=== PATIENT | male | born 1980 ===

== ENCOUNTER 2018-07-12 09:32 | Inpatient (IN) | payer MEDICAID, OTHER, SELFPAY ==
[~2018-07-12] VITALS: Ht 175.3 cm; Wt 83.6 kg
[2018-07-12 11:17] VITALS: BP 146/93
[2018-07-12 12:32] VITALS: BP 143/95
[2018-07-12] MEDS: INSULIN LISPRO 100 UNITS/ML, PEN SQ-INSULIN SCH ×3 (13:00→20:45)
[2018-07-12] MEDS ORDERED: ONDANSETRON 2MG/ML, 2ML IVPush PRN (13:00)
[2018-07-12] MEDS ORDERED: ENALAPRILAT 1.25 MG/ML, 2ML IVPush PRN (13:00)
[2018-07-12] MEDS ORDERED: LABETALOL 5MG/ML, 20ML IVPush PRN (13:00)
[2018-07-12] MEDS ORDERED: LISI-170 PO (13:28)
[2018-07-12] MEDS ORDERED: METF10007 PO (13:28)
[2018-07-12] MEDS ORDERED: PLEASE ENTER ALLERGIES MC SCH (13:30)
[2018-07-12 13:56] LABS: BASOPHILS # (AUTO) 0.04 x10^3/uL (0-0.1); BASOPHILS % (AUTO) 0 % (0-1); EOSINOPHILS % (AUTO) 3 % (1-7); LYMPHOCYTES # (AUTO) 1.56 x10^3/uL (1-3.4); LYMPHOCYTES % (AUTO) 13 % (22-44); MD NO; MEAN CORPUSCULAR HEMOGLOBIN 27.9 pg (27.5-34.5); MEAN CORPUSCULAR HGB CONC 33.5 g/dL (33.2-36.2); MEAN CORPUSCULAR VOLUME 83.3 fL (81-97); MONOCYTES % (AUTO) 5 % (2-9); NEUTROPHILS # (AUTO) 9.29 x10^3/uL (1.8-6.8); NEUTROPHILS % (AUTO) 78 % (42-75); PLATELET COUNT 347 x10^3/uL (130-400); RED BLOOD COUNT 4.39 x10^6/uL (4.38-5.82); RED CELL DISTRIBUTION WIDTH 14.5 % (9.4-14.8)
[2018-07-12 14:00] LABS: ANION GAP 3 mmol/L (5-15); CALCIUM 8.7 mg/dL (8.5-10.1); CHLORIDE 106 mmol/L (98-107)
[2018-07-12] MEDS ORDERED: SODIUM CHLORIDE 0.9% 1,000ML IVBOLUS ONE (14:00)
[2018-07-12 14:14] LABS: THYROID STIMULATING HORMONE 0.505 mIU/L (0.358-3.740)
[2018-07-12 14:26] LABS: HCT (SEDRATE) 36.5 % (39.2-51.8)
[2018-07-12] MEDS: NS + 20MEQ KCL 1,000 ML IV SCH (15:20)
[2018-07-12] MEDS ORDERED: VANCOMYCIN PER PHARMACY MC PRN (15:30)
[2018-07-12 15:48] VITALS: BP 149/97
[2018-07-12] MEDS ORDERED: PHARMACOKINETIC CONSULTATION MC ONE (16:00)
[2018-07-12] MEDS ORDERED: PHARMACOKINETIC MONITORING MC PRN (16:00)
[2018-07-12] MEDS: HEPARIN 5,000 UNITS/ML, 1ML SQ SCH ×2 (16:10→23:48)
[2018-07-12] MEDS: VANCOMYCIN 1,500 MG in SODIUM CHLORIDE 0.9% 250 ML IV SCH (16:43)
[2018-07-12] MEDS: metFORMIN 500 MG TABLET PO SCH (17:16)
[2018-07-12 20:07] LABS: HEMOGLOBIN A1C 8.4 % (4.2-6.3)
[2018-07-12] MEDS: PIPERACILLIN/TAZO/PMX 3.375GM 50 ML IV SCH (20:18)
[2018-07-12 20:50] VITALS: BP 157/90
[2018-07-13] MEDS: PIPERACILLIN/TAZO/PMX 3.375GM 50 ML IV SCH ×4 (01:31→21:30)
[2018-07-13 02:32] VITALS: BP 145/92
[2018-07-13] MEDS: NS + 20MEQ KCL 1,000 ML IV SCH (03:23)
[2018-07-13] MEDS: VANCOMYCIN 1,500 MG in SODIUM CHLORIDE 0.9% 250 ML IV SCH ×2 (04:33→16:48)
[2018-07-13 05:33] LABS: BASOPHILS # (AUTO) 0.05 x10^3/uL (0-0.1); BASOPHILS % (AUTO) 0 % (0-1); EOSINOPHILS # (AUTO) 0.48 x10^3/uL (0-0.4); EOSINOPHILS % (AUTO) 4 % (1-7); LYMPHOCYTES # (AUTO) 2.23 x10^3/uL (1-3.4); LYMPHOCYTES % (AUTO) 19 % (22-44); MD NO; MEAN CORPUSCULAR HEMOGLOBIN 28.3 pg (27.5-34.5); MEAN CORPUSCULAR HGB CONC 34.3 g/dL (33.2-36.2); MEAN CORPUSCULAR VOLUME 82.4 fL (81-97); MEAN PLATELET VOLUME 7.9 fL (7.4-10.4); MONOCYTES # (AUTO) 0.75 x10^3/uL (0.2-0.8); MONOCYTES % (AUTO) 6 % (2-9); NEUTROPHILS # (AUTO) 8.47 x10^3/uL (1.8-6.8); NEUTROPHILS % (AUTO) 71 % (42-75); PLATELET COUNT 339 x10^3/uL (130-400); RED BLOOD COUNT 4.13 x10^6/uL (4.38-5.82); RED CELL DISTRIBUTION WIDTH 14.3 % (9.4-14.8)
[2018-07-13 06:01] LABS: ANION GAP 2 mmol/L (5-15); CALCIUM 8.6 mg/dL (8.5-10.1); CHLORIDE 108 mmol/L (98-107); CREATININE 0.79 mg/dL (0.7-1.3)
[2018-07-13 06:02] LABS: CHOLESTEROL, TOTAL 143 mg/dL (140-239); TRIGLYCERIDES 84 mg/dL (50-200); VLDL CHOLESTEROL 17 mg/dL (0-25)
[2018-07-13 06:03] LABS: CHOL/HDL RATIO 5.7; HDL CHOL % 17 % (26-37); HDL CHOLESTEROL (DIRECT) 25 mg/dL (40-60); LDL CHOLESTEROL,CALCULATED 101 mg/dL (54-169)
[2018-07-13 07:11] VITALS: BP 142/89
[2018-07-13] MEDS: INSULIN LISPRO 100 UNITS/ML, PEN SQ-INSULIN SCH ×4 (08:28→21:00)
[2018-07-13] MEDS: LISINOPRIL 20 MG TABLET PO SCH (08:29)
[2018-07-13] MEDS: metFORMIN 500 MG TABLET PO SCH ×2 (08:29→16:48)
[2018-07-13] MEDS: HEPARIN 5,000 UNITS/ML, 1ML SQ SCH ×3 (08:29→23:57)
[2018-07-13] MEDS ORDERED: GADOBUTROL 7.5 MMOL/7.5 ML PFS ONE (10:34)
[2018-07-13 13:36] VITALS: BP 146/82
[2018-07-13 21:30] VITALS: BP 142/84
[2018-07-14 01:39] VITALS: BP 143/91
[2018-07-14] MEDS: PIPERACILLIN/TAZO/PMX 3.375GM 50 ML IV SCH ×4 (03:10→19:58)
[2018-07-14] MEDS: VANCOMYCIN 1,500 MG in SODIUM CHLORIDE 0.9% 250 ML IV SCH ×2 (04:40→17:31)
[2018-07-14 07:31] VITALS: BP 129/78
[2018-07-14] MEDS: ACETAMINOPHEN 325 MG TABLET PO PRN ×2 (07:45→13:30)
[2018-07-14] MEDS: LISINOPRIL 20 MG TABLET PO SCH (07:46)
[2018-07-14] MEDS: INSULIN LISPRO 100 UNITS/ML, PEN SQ-INSULIN SCH ×4 (07:46→20:43)
[2018-07-14] MEDS: metFORMIN 500 MG TABLET PO SCH ×2 (07:46→16:28)
[2018-07-14] MEDS: HEPARIN 5,000 UNITS/ML, 1ML SQ SCH ×2 (07:46→16:28)
[2018-07-14 08:52] LABS: BASOPHILS # (AUTO) 0.04 x10^3/uL (0-0.1); BASOPHILS % (AUTO) 1 % (0-1); EOSINOPHILS # (AUTO) 0.52 x10^3/uL (0-0.4); EOSINOPHILS % (AUTO) 7 % (1-7); LYMPHOCYTES # (AUTO) 1.78 x10^3/uL (1-3.4); LYMPHOCYTES % (AUTO) 23 % (22-44); MD NO; MEAN CORPUSCULAR HGB CONC 34.2 g/dL (33.2-36.2); MEAN PLATELET VOLUME 7.7 fL (7.4-10.4); MONOCYTES # (AUTO) 0.37 x10^3/uL (0.2-0.8); MONOCYTES % (AUTO) 5 % (2-9); NEUTROPHILS # (AUTO) 5.08 x10^3/uL (1.8-6.8); NEUTROPHILS % (AUTO) 65 % (42-75); PLATELET COUNT 433 x10^3/uL (130-400); RED BLOOD COUNT 4.51 x10^6/uL (4.38-5.82); RED CELL DISTRIBUTION WIDTH 13.9 % (9.4-14.8)
[2018-07-14 09:13] LABS: ANION GAP 9 mmol/L (5-15); CALCIUM 8.6 mg/dL (8.5-10.1); CHLORIDE 103 mmol/L (98-107)
[2018-07-14 09:14] LABS: CREATININE 0.81 mg/dL (0.7-1.3)
[2018-07-14 13:27] VITALS: BP 121/81
[2018-07-14] MEDS: DAKIN'S SOLUTION 1/4 STRENGTH 1,000 ML IRRIG SOLN EXT SCH (15:47)
[2018-07-14 20:00] VITALS: BP 142/91
[2018-07-15 00:59] VITALS: BP 113/75
[2018-07-15] MEDS: PIPERACILLIN/TAZO/PMX 3.375GM 50 ML IV SCH ×3 (03:45→15:17)
[2018-07-15] MEDS: VANCOMYCIN 1,500 MG in SODIUM CHLORIDE 0.9% 250 ML IV SCH (05:04)
[2018-07-15 08:04] VITALS: BP 156/97
[2018-07-15] MEDS: metFORMIN 500 MG TABLET PO SCH ×2 (08:20→17:54)
[2018-07-15] MEDS: INSULIN LISPRO 100 UNITS/ML, PEN SQ-INSULIN SCH ×4 (08:20→20:18)
[2018-07-15] MEDS: HEPARIN 5,000 UNITS/ML, 1ML SQ SCH ×4 (08:21→23:45)
[2018-07-15] MEDS: LISINOPRIL 20 MG TABLET PO SCH (08:21)
[2018-07-15 14:26] VITALS: BP 142/92
[2018-07-15] MEDS: DAKIN'S SOLUTION 1/4 STRENGTH 1,000 ML IRRIG SOLN EXT SCH ×2 (15:17→23:45)
[2018-07-15] MEDS: DAPTOMYCIN 500 MG in SODIUM CHLORIDE 0.9% 100 ML IV SCH (17:53)
[2018-07-15] MEDS: INSULIN GLARGINE 100 UNITS/ML, PEN SQ-INSULIN SCH (18:39)
[2018-07-15 21:30] VITALS: BP 136/91
[2018-07-16 03:50] VITALS: BP 165/95
[2018-07-16 06:58] VITALS: BP 160/89
[2018-07-16] MEDS: INSULIN LISPRO 100 UNITS/ML, PEN SQ-INSULIN SCH ×4 (07:00→21:23)
[2018-07-16] MEDS: INSULIN GLARGINE 100 UNITS/ML, PEN SQ-INSULIN SCH (08:23)
[2018-07-16] MEDS: HEPARIN 5,000 UNITS/ML, 1ML SQ SCH ×2 (08:24→17:33)
[2018-07-16] MEDS: LISINOPRIL 20 MG TABLET PO SCH (08:24)
[2018-07-16] MEDS: metFORMIN 500 MG TABLET PO SCH ×2 (08:24→17:32)
[2018-07-16] MEDS: DAKIN'S SOLUTION 1/4 STRENGTH 1,000 ML IRRIG SOLN EXT SCH ×2 (08:25→21:27)
[2018-07-16 14:01] VITALS: BP 164/73
[2018-07-16] MEDS: DAPTOMYCIN 500 MG in SODIUM CHLORIDE 0.9% 100 ML IV SCH (18:46)
[2018-07-16 19:44] VITALS: BP 143/96
[2018-07-17 01:16] VITALS: BP 125/79
[2018-07-17] MEDS: HEPARIN 5,000 UNITS/ML, 1ML SQ SCH ×3 (01:16→17:32)
[2018-07-17] MEDS: INSULIN LISPRO 100 UNITS/ML, PEN SQ-INSULIN SCH ×4 (07:00→20:55)
[2018-07-17 07:53] VITALS: BP 143/98
[2018-07-17] MEDS: INSULIN GLARGINE 100 UNITS/ML, PEN SQ-INSULIN SCH (08:13)
[2018-07-17] MEDS: metFORMIN 500 MG TABLET PO SCH ×2 (08:14→17:32)
[2018-07-17] MEDS: LISINOPRIL 20 MG TABLET PO SCH (08:14)
[2018-07-17 13:53] VITALS: BP 115/81
[2018-07-17] MEDS: DAKIN'S SOLUTION 1/4 STRENGTH 1,000 ML IRRIG SOLN EXT SCH (17:37)
[2018-07-17] MEDS: DAPTOMYCIN 500 MG in SODIUM CHLORIDE 0.9% 100 ML IV SCH (17:46)
[2018-07-17] MEDS ORDERED: LORazepam 2 MG/ML, 1ML IM ONE (18:30)
[2018-07-17] MEDS ORDERED: DIPHENHYDRAMINE 50 MG/ML, 1ML IM ONE (18:30)
[2018-07-17 20:00] VITALS: BP 127/84
[2018-07-18] MEDS: HEPARIN 5,000 UNITS/ML, 1ML SQ SCH ×3 (00:53→18:33)
[2018-07-18 02:22] VITALS: BP 123/83
[2018-07-18] MEDS: INSULIN LISPRO 100 UNITS/ML, PEN SQ-INSULIN SCH ×4 (07:00→21:00)
[2018-07-18 07:09] VITALS: BP 143/92
[2018-07-18] MEDS: DAKIN'S SOLUTION 1/4 STRENGTH 1,000 ML IRRIG SOLN EXT SCH (09:00)
[2018-07-18] MEDS: INSULIN GLARGINE 100 UNITS/ML, PEN SQ-INSULIN SCH (10:08)
[2018-07-18] MEDS: metFORMIN 500 MG TABLET PO SCH ×2 (10:09→16:47)
[2018-07-18] MEDS: LISINOPRIL 20 MG TABLET PO SCH (10:10)
[2018-07-18 10:37] LABS: HCT (SEDRATE) 38.7 % (39.2-51.8)
[2018-07-18 10:40] LABS: MEAN CORPUSCULAR HEMOGLOBIN 28.6 pg (27.5-34.5); MEAN CORPUSCULAR VOLUME 82.9 fL (81-97); RED BLOOD COUNT 4.65 x10^6/uL (4.38-5.82)
[2018-07-18 10:41] LABS: BASOPHILS # (AUTO) 0.04 x10^3/uL (0-0.1); BASOPHILS % (AUTO) 1 % (0-1); EOSINOPHILS # (AUTO) 0.57 x10^3/uL (0-0.4); EOSINOPHILS % (AUTO) 7 % (1-7); LYMPHOCYTES % (AUTO) 22 % (22-44); MD NO; MEAN CORPUSCULAR HGB CONC 34.5 g/dL (33.2-36.2); MEAN PLATELET VOLUME 7.7 fL (7.4-10.4); MONOCYTES # (AUTO) 0.38 x10^3/uL (0.2-0.8); MONOCYTES % (AUTO) 5 % (2-9); NEUTROPHILS % (AUTO) 66 % (42-75); PLATELET COUNT 608 x10^3/uL (130-400); RED CELL DISTRIBUTION WIDTH 14.8 % (9.4-14.8)
[2018-07-18 10:45] LABS: ANION GAP 8 mmol/L (5-15); CALCIUM 9.2 mg/dL (8.5-10.1); CHLORIDE 106 mmol/L (98-107); CREATININE 0.74 mg/dL (0.7-1.3)
[2018-07-18 12:37] VITALS: BP 120/81
[2018-07-18] MEDS: DAPTOMYCIN 500 MG in SODIUM CHLORIDE 0.9% 100 ML IV SCH (17:29)
[2018-07-18 19:54] VITALS: BP 120/88
[2018-07-19] MEDS: HEPARIN 5,000 UNITS/ML, 1ML SQ SCH ×3 (02:04→17:30)
[2018-07-19 03:40] VITALS: BP 124/87
[2018-07-19] MEDS: INSULIN LISPRO 100 UNITS/ML, PEN SQ-INSULIN SCH ×3 (07:00→16:00)
[2018-07-19 07:33] VITALS: BP 124/83
[2018-07-19] MEDS: INSULIN GLARGINE 100 UNITS/ML, PEN SQ-INSULIN SCH (07:44)
[2018-07-19] MEDS: metFORMIN 500 MG TABLET PO SCH ×3 (07:44→17:00)
[2018-07-19] MEDS: LISINOPRIL 20 MG TABLET PO SCH (07:45)
[2018-07-19 08:44] LABS: BASOPHILS # (AUTO) 0.04 x10^3/uL (0-0.1); BASOPHILS % (AUTO) 1 % (0-1); EOSINOPHILS # (AUTO) 0.61 x10^3/uL (0-0.4); EOSINOPHILS % (AUTO) 9 % (1-7); LYMPHOCYTES # (AUTO) 2.04 x10^3/uL (1-3.4); LYMPHOCYTES % (AUTO) 29 % (22-44); MD NO; MEAN CORPUSCULAR HEMOGLOBIN 27.6 pg (27.5-34.5); MEAN CORPUSCULAR HGB CONC 33.6 g/dL (33.2-36.2); MEAN CORPUSCULAR VOLUME 82.2 fL (81-97); MEAN PLATELET VOLUME 8.1 fL (7.4-10.4); MONOCYTES # (AUTO) 0.31 x10^3/uL (0.2-0.8); MONOCYTES % (AUTO) 4 % (2-9); NEUTROPHILS # (AUTO) 3.97 x10^3/uL (1.8-6.8); NEUTROPHILS % (AUTO) 57 % (42-75); PLATELET COUNT 582 x10^3/uL (130-400); RED CELL DISTRIBUTION WIDTH 14.7 % (9.4-14.8)
[2018-07-19] MEDS: DAKIN'S SOLUTION 1/4 STRENGTH 1,000 ML IRRIG SOLN EXT SCH (10:07)
[2018-07-19 14:47] VITALS: BP 133/91
[2018-07-19] MEDS ORDERED: FENTANYL PF 100 MCG/2ML ONE ×2 (14:47→16:52)
[2018-07-19] MEDS ORDERED: BACITRACIN 50,000 UNIT ONE (15:22)
[2018-07-19] MEDS ORDERED: CEFAZOLIN 1,000 MG ONE (16:28)
[2018-07-19] MEDS ORDERED: DEXAMETHASONE 4 MG/ML, 1ML ONE (16:28)
[2018-07-19] MEDS ORDERED: PROPOFOL 10 MG/ML, 20ML ONE (16:28)
[2018-07-19] MEDS ORDERED: ONDANSETRON 2MG/ML, 2ML ONE (16:28)
[2018-07-19] MEDS ORDERED: GLYCOPYRROLATE 0.2MG/1ML, 5ML ONE (16:28)
[2018-07-19] MEDS ORDERED: NEOSTIGMINE 1 MG/ML, 10ML ONE (16:28)
[2018-07-19] MEDS ORDERED: SUCCINYLCHOLINE 20 MG/ML, 10ML ONE (16:28)
[2018-07-19] MEDS ORDERED: ROCURONIUM 10MG/ML,5ML ONE (16:28)
[2018-07-19] MEDS ORDERED: HYDROmorphone 1 MG/ML, 1ML IV PRN (16:30)
[2018-07-19] MEDS ORDERED: DIPHENHYDRAMINE 50 MG/ML, 1ML IVPush PRN (16:30)
[2018-07-19] MEDS ORDERED: hydrALAzine 20 MG/ML, 1ML IV PRN (16:30)
[2018-07-19] MEDS ORDERED: LABETALOL 5MG/ML, 20ML IV PRN (16:30)
[2018-07-19] MEDS ORDERED: PROMETHAZINE 25 MG/ML, 1ML IV PRN (16:30)
[2018-07-19] MEDS ORDERED: OXYcodone 5 MG/5 ML ORAL.SOL UDC ONE (16:52)
[2018-07-19] MEDS: FENTANYL PF 100 MCG/2ML IV PRN ×2 (16:56→17:13)
[2018-07-19] MEDS ORDERED: OXYcodone 5 MG/5 ML ORAL.SOL UDC PO PRN (17:00)
[2018-07-19] MEDS ORDERED: ONDANSETRON ODT 8 MG ONE (17:18)
[2018-07-19] MEDS: ONDANSETRON ODT 4 MG PO PRN ×2 (17:20→21:21)
[2018-07-19] MEDS ORDERED: MORPHINE SULFATE 4 MG/ML, 1ML ONE (18:21)
[2018-07-19] MEDS ORDERED: OXYcodone/APAP 5/325MG TABLET PO PRN (18:30)
[2018-07-19] MEDS ORDERED: MORPHINE SULFATE 4 MG/ML, 1ML IVPush PRN (18:30)
[2018-07-19] MEDS: DAPTOMYCIN 500 MG in SODIUM CHLORIDE 0.9% 100 ML IV SCH (19:09)
[2018-07-19 20:36] VITALS: BP 139/84
[2018-07-20] MEDS: HEPARIN 5,000 UNITS/ML, 1ML SQ SCH ×3 (00:29→17:03)
[2018-07-20] MEDS: INSULIN LISPRO 100 UNITS/ML, PEN SQ-INSULIN SCH ×5 (00:29→20:31)
[2018-07-20 01:15] VITALS: BP 102/69
[2018-07-20 07:00] VITALS: BP 109/70
[2018-07-20] MEDS: LISINOPRIL 20 MG TABLET PO SCH (08:17)
[2018-07-20] MEDS: metFORMIN 500 MG TABLET PO SCH ×2 (08:18→17:04)
[2018-07-20] MEDS: INSULIN GLARGINE 100 UNITS/ML, PEN SQ-INSULIN SCH (08:19)
[2018-07-20] MEDS: DAKIN'S SOLUTION 1/4 STRENGTH 1,000 ML IRRIG SOLN EXT SCH (08:19)
[2018-07-20 12:51] VITALS: BP 116/81
[2018-07-20 20:00] VITALS: BP 138/96
[2018-07-20] MEDS: DAPTOMYCIN 500 MG in SODIUM CHLORIDE 0.9% 100 ML IV SCH (20:06)
[2018-07-21] MEDS: HEPARIN 5,000 UNITS/ML, 1ML SQ SCH ×3 (01:06→17:06)
[2018-07-21 01:08] VITALS: BP 124/82
[2018-07-21] MEDS: metFORMIN 500 MG TABLET PO SCH ×2 (07:45→17:06)
[2018-07-21 08:07] VITALS: BP 122/84
[2018-07-21] MEDS: INSULIN GLARGINE 100 UNITS/ML, PEN SQ-INSULIN SCH (08:58)
[2018-07-21] MEDS: INSULIN LISPRO 100 UNITS/ML, PEN SQ-INSULIN SCH ×3 (08:59→17:05)
[2018-07-21] MEDS: DAKIN'S SOLUTION 1/4 STRENGTH 1,000 ML IRRIG SOLN EXT SCH (09:00)
[2018-07-21] MEDS: LISINOPRIL 20 MG TABLET PO SCH (09:56)
[2018-07-21 14:30] VITALS: BP 121/79
[2018-07-21] MEDS ORDERED: DAPT500V6 IV (16:34)
[2018-07-21] MEDS: DAPTOMYCIN 500 MG in SODIUM CHLORIDE 0.9% 100 ML IV SCH (19:31)
[2018-07-21 19:37] VITALS: BP 110/75
== END 2018-07-21 20:45 | disposition home health service (06) | DRG 464 ==
LOC: 4EST 10:56
PROVIDERS: ADMIT Family Medicine; ATTEND Family Medicine
PROC: 02HV33Z Insertion of Infusion Device into Superior Vena Cava, Percutaneous Approach (ICD-10-PCS; 2018-07-15)
PROC: B5181ZA Fluoroscopy of Superior Vena Cava using Low Osmolar Contrast, Guidance (ICD-10-PCS; 2018-07-15)
PROC: B548ZZA Ultrasonography of Superior Vena Cava, Guidance (ICD-10-PCS; 2018-07-15)
PROC: 0J9R0ZZ Drainage of Left Foot Subcutaneous Tissue and Fascia, Open Approach (ICD-10-PCS; 2018-07-19)
PROC: 0JBR0ZZ Excision of Left Foot Subcutaneous Tissue and Fascia, Open Approach (ICD-10-PCS; principal; 2018-07-19 16:15)
DX: M86.172 Other acute osteomyelitis, left ankle and foot (principal); L02.11 Cutaneous abscess of neck; E87.1 Hypo-osmolality and hyponatremia; L02.612 Cutaneous abscess of left foot; E11.69 Type 2 diabetes mellitus with other specified complication; D63.8 Anemia in other chronic diseases classified elsewhere; L97.529 Non-pressure chronic ulcer of other part of left foot with unspecified severity; E11.621 Type 2 diabetes mellitus with foot ulcer; E11.628 Type 2 diabetes mellitus with other skin complications; I10 Essential (primary) hypertension; Z79.4 Long term (current) use of insulin; Z83.3 Family history of diabetes mellitus
CPT/HCPCS: 36415; 77001; J3490; 36569; 71045; 76937; 80048; 80061; 80202; 82550; 82962; 83036; 83605; 83735; 84100; 84443; 85025; 85651; 86140; 87040; 87070; 87075; 87077; 87186; 87205; A9585; G0378; J0690; J0878; J1100; J1644; J2405; J2543; J2704; J2710; J3010; J3370; J3480; Q0162; C1751; J0330; J1815; J7030; J7050

== ENCOUNTER → 2018-07-22 | Outpatient (CLI) | payer MEDICAID ==
[~2018-07-22] MED LIST: DAPT500V6 IV; LISI-170 PO; METF10007 PO
== END | disposition home or self-care (01) ==
LOC: WOUND 09:55
PROVIDERS: ATTEND Family Medicine
DX: E11.621 Type 2 diabetes mellitus with foot ulcer (principal); L97.521 Non-pressure chronic ulcer of other part of left foot limited to breakdown of skin; E11.21 Type 2 diabetes mellitus with diabetic nephropathy; E11.69 Type 2 diabetes mellitus with other specified complication; M86.172 Other acute osteomyelitis, left ankle and foot; I10 Essential (primary) hypertension; E66.9 Obesity, unspecified; Z79.4 Long term (current) use of insulin
CPT/HCPCS: 11043; 99215

== ENCOUNTER → 2018-07-27 | Outpatient (CLI) | payer MEDICAID | END | disposition home or self-care (01) | LOC: WOUND 14:06 | PROVIDERS: ATTEND Internal Medicine | DX: E11.621 Type 2 diabetes mellitus with foot ulcer (principal); L97.521 Non-pressure chronic ulcer of other part of left foot limited to breakdown of skin; E11.21 Type 2 diabetes mellitus with diabetic nephropathy; E11.69 Type 2 diabetes mellitus with other specified complication; M86.172 Other acute osteomyelitis, left ankle and foot; I10 Essential (primary) hypertension; E66.9 Obesity, unspecified; Z79.4 Long term (current) use of insulin | CPT/HCPCS: 97605 ==

== ENCOUNTER → 2018-07-29 | Outpatient (CLI) | payer MEDICAID | END | disposition home or self-care (01) | LOC: WOUND 13:02 | PROVIDERS: ATTEND Family Medicine | DX: E11.621 Type 2 diabetes mellitus with foot ulcer (principal); L97.521 Non-pressure chronic ulcer of other part of left foot limited to breakdown of skin; E11.21 Type 2 diabetes mellitus with diabetic nephropathy; E11.69 Type 2 diabetes mellitus with other specified complication; M86.172 Other acute osteomyelitis, left ankle and foot; I10 Essential (primary) hypertension; E66.9 Obesity, unspecified; Z79.4 Long term (current) use of insulin | CPT/HCPCS: 11043; 97605 ==

== ENCOUNTER → 2018-08-01 | Outpatient (CLI) | payer MEDICAID | END | disposition home or self-care (01) | LOC: WOUND 14:31 | PROVIDERS: ATTEND Internal Medicine | DX: E11.621 Type 2 diabetes mellitus with foot ulcer (principal); L97.521 Non-pressure chronic ulcer of other part of left foot limited to breakdown of skin; E11.69 Type 2 diabetes mellitus with other specified complication; M86.172 Other acute osteomyelitis, left ankle and foot; E11.21 Type 2 diabetes mellitus with diabetic nephropathy; I10 Essential (primary) hypertension; E66.9 Obesity, unspecified; Z79.4 Long term (current) use of insulin | CPT/HCPCS: 97605 ==

== ENCOUNTER → 2018-08-03 | Outpatient (CLI) | payer MEDICAID | END | disposition home or self-care (01) | LOC: WOUND 10:08 | PROVIDERS: ATTEND Internal Medicine | DX: E11.621 Type 2 diabetes mellitus with foot ulcer (principal); L97.521 Non-pressure chronic ulcer of other part of left foot limited to breakdown of skin; E11.21 Type 2 diabetes mellitus with diabetic nephropathy; E11.69 Type 2 diabetes mellitus with other specified complication; M86.172 Other acute osteomyelitis, left ankle and foot; I10 Essential (primary) hypertension; Z79.4 Long term (current) use of insulin; E66.9 Obesity, unspecified; Z68.25 Body mass index [BMI] 25.0-25.9, adult | CPT/HCPCS: 97597 ==

== ENCOUNTER → 2018-08-08 | Outpatient (CLI) | payer MEDICAID | END | disposition home or self-care (01) | LOC: WOUND 10:34 | PROVIDERS: ATTEND Internal Medicine | DX: E11.621 Type 2 diabetes mellitus with foot ulcer (principal); L97.521 Non-pressure chronic ulcer of other part of left foot limited to breakdown of skin; E11.21 Type 2 diabetes mellitus with diabetic nephropathy; E11.69 Type 2 diabetes mellitus with other specified complication; M86.172 Other acute osteomyelitis, left ankle and foot; I10 Essential (primary) hypertension; Z79.4 Long term (current) use of insulin; E66.9 Obesity, unspecified; Z68.27 Body mass index [BMI] 27.0-27.9, adult | CPT/HCPCS: 97605 ==

== ENCOUNTER → 2018-08-10 | Outpatient (CLI) | payer MEDICAID | END | disposition home or self-care (01) | LOC: WOUND 09:08 | PROVIDERS: ATTEND Internal Medicine | DX: E11.621 Type 2 diabetes mellitus with foot ulcer (principal); L97.521 Non-pressure chronic ulcer of other part of left foot limited to breakdown of skin; E11.21 Type 2 diabetes mellitus with diabetic nephropathy; E11.69 Type 2 diabetes mellitus with other specified complication; M86.172 Other acute osteomyelitis, left ankle and foot; I10 Essential (primary) hypertension; Z79.4 Long term (current) use of insulin; E66.9 Obesity, unspecified; Z68.25 Body mass index [BMI] 25.0-25.9, adult | CPT/HCPCS: 97597 ==

== ENCOUNTER → 2018-08-12 | Outpatient (CLI) | payer MEDICAID | END | disposition home or self-care (01) | LOC: WOUND 10:17 | PROVIDERS: ATTEND Internal Medicine Cardiovascular Disease | DX: E11.621 Type 2 diabetes mellitus with foot ulcer (principal); L97.521 Non-pressure chronic ulcer of other part of left foot limited to breakdown of skin; E11.69 Type 2 diabetes mellitus with other specified complication; M86.172 Other acute osteomyelitis, left ankle and foot; I10 Essential (primary) hypertension; E66.9 Obesity, unspecified; Z68.37 Body mass index [BMI] 37.0-37.9, adult; Z79.4 Long term (current) use of insulin | CPT/HCPCS: 97602 ==

== ENCOUNTER → 2018-08-17 | Outpatient (CLI) | payer MEDICAID | END | disposition home or self-care (01) | LOC: WOUND 11:54 | PROVIDERS: ATTEND Internal Medicine Cardiovascular Disease | DX: E11.621 Type 2 diabetes mellitus with foot ulcer (principal); L97.521 Non-pressure chronic ulcer of other part of left foot limited to breakdown of skin; E11.69 Type 2 diabetes mellitus with other specified complication; M86.172 Other acute osteomyelitis, left ankle and foot; I10 Essential (primary) hypertension | CPT/HCPCS: 97602 ==

== ENCOUNTER → 2018-08-19 | Outpatient (CLI) | payer MEDICAID | END | disposition home or self-care (01) | LOC: WOUND 08:04 | PROVIDERS: ATTEND Internal Medicine Cardiovascular Disease | DX: E11.621 Type 2 diabetes mellitus with foot ulcer (principal); L97.521 Non-pressure chronic ulcer of other part of left foot limited to breakdown of skin; E11.21 Type 2 diabetes mellitus with diabetic nephropathy; E11.69 Type 2 diabetes mellitus with other specified complication; M86.172 Other acute osteomyelitis, left ankle and foot; I10 Essential (primary) hypertension; Z79.4 Long term (current) use of insulin; E66.9 Obesity, unspecified; Z68.25 Body mass index [BMI] 25.0-25.9, adult | CPT/HCPCS: 97602 ==

== ENCOUNTER → 2018-08-26 | Outpatient (CLI) | payer MEDICAID | END | disposition home or self-care (01) | LOC: WOUND 08:35 | PROVIDERS: ATTEND Family Medicine | DX: E11.621 Type 2 diabetes mellitus with foot ulcer (principal); L03.116 Cellulitis of left lower limb; E11.69 Type 2 diabetes mellitus with other specified complication; M86.172 Other acute osteomyelitis, left ankle and foot; E11.21 Type 2 diabetes mellitus with diabetic nephropathy; E66.9 Obesity, unspecified; I10 Essential (primary) hypertension; Z79.4 Long term (current) use of insulin | CPT/HCPCS: 11042 ==

== ENCOUNTER → 2018-09-07 | Outpatient (CLI) | payer MEDICAID | END | disposition home or self-care (01) | LOC: WOUND 13:14 | PROVIDERS: ATTEND Internal Medicine | DX: E11.621 Type 2 diabetes mellitus with foot ulcer (principal); L97.522 Non-pressure chronic ulcer of other part of left foot with fat layer exposed; E11.21 Type 2 diabetes mellitus with diabetic nephropathy; E11.69 Type 2 diabetes mellitus with other specified complication; M86.172 Other acute osteomyelitis, left ankle and foot; I10 Essential (primary) hypertension; Z79.4 Long term (current) use of insulin; E66.9 Obesity, unspecified; Z68.25 Body mass index [BMI] 25.0-25.9, adult | CPT/HCPCS: 11042 ==

== ENCOUNTER → 2018-09-16 | Outpatient (CLI) | payer MEDICAID | END | disposition home or self-care (01) | LOC: WOUND 09:36 | PROVIDERS: ATTEND Family Medicine | DX: E11.621 Type 2 diabetes mellitus with foot ulcer (principal); L97.521 Non-pressure chronic ulcer of other part of left foot limited to breakdown of skin; E11.69 Type 2 diabetes mellitus with other specified complication; M86.172 Other acute osteomyelitis, left ankle and foot; E11.21 Type 2 diabetes mellitus with diabetic nephropathy; I10 Essential (primary) hypertension; E66.9 Obesity, unspecified; Z68.25 Body mass index [BMI] 25.0-25.9, adult; Z79.4 Long term (current) use of insulin | CPT/HCPCS: 99214 ==

== ENCOUNTER → 2018-10-07 | Outpatient (CLI) | payer MEDICAID | END | disposition home or self-care (01) | LOC: WOUND 10:16 | PROVIDERS: ATTEND Family Medicine | DX: S01.80XA Unspecified open wound of other part of head, initial encounter (principal); S11.90XA Unspecified open wound of unspecified part of neck, initial encounter; E11.21 Type 2 diabetes mellitus with diabetic nephropathy; E11.69 Type 2 diabetes mellitus with other specified complication; M86.172 Other acute osteomyelitis, left ankle and foot; I10 Essential (primary) hypertension; L72.3 Sebaceous cyst; E66.9 Obesity, unspecified; Z68.25 Body mass index [BMI] 25.0-25.9, adult; Z79.4 Long term (current) use of insulin; X58.XXXA Exposure to other specified factors, initial encounter; Y93.89 Activity, other specified; Y92.89 Other specified places as the place of occurrence of the external cause; Y99.8 Other external cause status | CPT/HCPCS: 10061 ==

== ENCOUNTER 2019-03-10 16:58 | Emergency (ER) | payer MEDICAID ==
[~2019-03-10] VITALS: Ht 175.3 cm; Wt 74.0 kg
[2019-03-10 17:06] VITALS: BP 126/81
== END 2019-03-10 19:15 | disposition home or self-care (01) ==
LOC: ED 19:07
DX: H00.012 Hordeolum externum right lower eyelid (principal); Z72.9 Problem related to lifestyle, unspecified
CPT/HCPCS: 99283

== ENCOUNTER 2019-10-16 15:08 | Inpatient (IN) | payer MEDICAID, OTHER ==
[~2019-10-16] VITALS: Ht 175.3 cm; Wt 82.0 kg
[~2019-10-16 15:08] MED LIST changes: +CARV12.52 PO; +DAPT500V3 IV; +ERGO500017 PO; +HYDR-3343 PO; +INSU100I13 SQ-INSULIN; +ISOS10TA2 PO; +SIMV20TA PO; +TAMS-11 PO; +TRAM50TA2 PO
[2019-10-16 15:40] LABS: BASOPHILS % (AUTO) 0 % (0-1); EOSINOPHILS # (AUTO) 0.06 x10^3/uL (0-0.4); EOSINOPHILS % (AUTO) 1 % (1-7); LYMPHOCYTES # (AUTO) 1.42 x10^3/uL (1-3.4); LYMPHOCYTES % (AUTO) 12 % (22-44); MD NO; MEAN CORPUSCULAR HEMOGLOBIN 28.6 pg (27.5-34.5); MEAN CORPUSCULAR HGB CONC 31.6 g/dL (33.2-36.2); MEAN CORPUSCULAR VOLUME 90.7 fL (81-97); MEAN PLATELET VOLUME 8.1 fL (7.4-10.4); MONOCYTES # (AUTO) 0.36 x10^3/uL (0.2-0.8); MONOCYTES % (AUTO) 3 % (2-9); NEUTROPHILS # (AUTO) 9.99 x10^3/uL (1.8-6.8); NEUTROPHILS % (AUTO) 84 % (42-75); PLATELET COUNT 474 x10^3/uL (130-400); RED BLOOD COUNT 3.97 x10^6/uL (4.38-5.82); RED CELL DISTRIBUTION WIDTH 14.7 % (9.4-14.8)
[2019-10-16 15:41] LABS: PH, VENOUS 7.384 pH (7.320-7.420)
[2019-10-16 15:49] LABS: ALANINE AMINOTRANSFERASE 9 U/L (12-78); ALBUMIN 1.8 g/dL (3.4-5.0); ANION GAP 5 mmol/L (5-15); CALCIUM 8.3 mg/dL (8.5-10.1); CHLORIDE 89 mmol/L (98-107); CREATININE 1.39 mg/dL (0.7-1.3)
[2019-10-16 15:54] LABS: ALKALINE PHOSPHATASE 218 U/L (45-117); BILIRUBIN,TOTAL 0.3 mg/dL (0.2-1.0); TOTAL PROTEIN 8.1 g/dL (6.4-8.2)
--- NOTE | 2019-10-16 16:25 | NUR ---
THIS IS A 39 YO MALE COMING IN FOR LESIONS OVER LEFT ANKLE AND FOOT WITH NOTED SWELLING. PATIENT HAS HX OF DIABETES, METHAMPHETAMINE USE, AND MRSA. MULTIPLE OPEN LESIONS WITH WEEPING CENTER NOTED ON LEFT ANKLE AND FOOT. BLOOD GLUCOSE IN TRAIGE 748. PATIENT APPEARS DISHOVELED, UNKEMPT, AND UNABLE TO CARE FOR SELF. FAMILY IN ROOM. PATIENT IN GOWN, PLACED ON CONTINUOUS SPO2, CYCLE BP Q1HR. DENIES FURTHER NEEDS AT THIS TIME.
[2019-10-16] MEDS ORDERED: SODIUM CHLORIDE 0.9% 1,000ML IVBOLUS ONE (16:30)
[2019-10-16] MEDS ORDERED: PIPERACILLIN/TAZO/PMX 3.375GM 50 ML IVPB ONE (16:30)
[2019-10-16] MEDS ORDERED: VANCOMYCIN PER PHARMACY MC ONE (16:30)
[2019-10-16] MEDS ORDERED: INSULIN REGULAR 100 UNITS/ML, 3ML VIAL SQ-INSULIN ONE (16:30)
[2019-10-16 16:37] LABS: ACETONE, SERUM Negative (Negative)
--- NOTE | 2019-10-16 16:49 | NUR ---
IV INSERTED AND IVF RUNNING PER MD ORDERS.
[2019-10-16] MEDS ORDERED: VANCOMYCIN 1,500 MG in SODIUM CHLORIDE 0.9% 250 ML IV ONE (17:00)
[2019-10-16] MEDS ORDERED: PIPERACILLIN/TAZO/PMX 3.375GM 50 ML ONE (17:02)
[2019-10-16] MEDS ORDERED: INSULIN SINGLE DOSE, ER ONE (17:06)
--- NOTE | 2019-10-16 17:15 | NUR ---
BLOOD CULTURES X2 DRAWN PRIOR TO ABX ADMIN
--- NOTE | 2019-10-16 17:17 | NUR ---
PATIENT MEDICATED PER EMAR, TOLERATED WELL. DENIES NEEDS AT THIS TIME. CALL LIGHT IN REACH.
--- NOTE | 2019-10-16 18:05 | NUR ---
PATIENT MEDICATED PER EMAR, TOLERATED WELL. URINAL PROVIDED, DENIES NEEDS AT THIS TIME. CALL LIGHT IN REACH.
--- NOTE | 2019-10-16 18:10 | NUR ---
BG FINGER STICK TAKEN, RESULTED "HI" AND EXCEEDS 600. MD NOTIFIED.
[2019-10-16] MEDS ORDERED: SODIUM CHLORIDE FLUSH 10ML SYR IVF PRN (18:30)
--- NOTE | 2019-10-16 18:46 | NUR ---
PATIENT RESTING ON GURADU, ANURADHA, NO ABX REACTION NOTED. DENIES NEEDS AT THIS TIME.
--- NOTE | 2019-10-16 20:03 | NUR ---
PATIENT RESTING ON GURNEY, FAMILY BROUGHT FOOD FOR PATIENT. NAD, VSS, CALL LIGHT IN REACH. IV ABX FINISHED, IVF BACK TO RUNNING. DENIES NEEDS AT THIS TIME.
[2019-10-16] MEDS ORDERED: SODIUM CHLORIDE 0.9% 1,000 ML IV SCH (20:56)
[2019-10-16] MEDS ORDERED: ONDANSETRON ODT 4 MG PO PRN (21:00)
[2019-10-16] MEDS ORDERED: LIDODERM 5% PATCH TD PRN (21:00)
[2019-10-16] MEDS ORDERED: DOCUSATE 100 MG CAPSULE PO PRN (21:00)
[2019-10-16] MEDS ORDERED: PHARMACY MAY ADJ FOR RENAL FX MC PRN (21:00)
[2019-10-16] MEDS ORDERED: TEMAZEPAM 15 MG CAPSULE PO PRN (21:00)
[2019-10-16] MEDS ORDERED: VANCOMYCIN PER PHARMACY MC PRN (21:00)
[2019-10-16] MEDS ORDERED: hydrALAzine 20 MG/ML, 1ML IVPush PRN (21:00)
[2019-10-16] MEDS ORDERED: ACETAMINOPHEN 325 MG TABLET PO PRN (21:00)
--- NOTE | 2019-10-16 21:06 | NUR ---
PATIENT SLEEPING AT THIS TIME, RESPIRATIONS EVEN AND UNLABORED, VSS, NAD, CALL LIGHT IN REACH.
[2019-10-16] MEDS ORDERED: HEPARIN 5,000 UNITS/ML, 1ML ONE (21:17)
[2019-10-16] MEDS ORDERED: PHARMACOKINETIC MONITORING MC PRN (21:30)
[2019-10-16] MEDS: HEPARIN 5,000 UNITS/ML, 1ML SQ SCH (21:30)
--- NOTE | 2019-10-16 21:42 | NUR ---
SECOND LITER AT IVF RUNNING AT 150ML/HR, MEDICATED PER EMAR, TOLERATED WELL. URINAL AT BEDSIDE. CALL LIGHT IN REACH, DENIES FURTHER NEEDS AT THIS TIME.
--- NOTE | 2019-10-16 23:04 | NUR ---
PATIENT SLEEPING, RESPIRATIONS EVEN AND UNLABORED. CALL LIGHT IN REACH. VSS.
--- NOTE | 2019-10-17 00:45 | NUR ---
PATINET SLEEPING, LEFT UNDISTURBED. RESPIRATIONS EVEN AND UNLABORED. CALL LIGHT IN REACH, URINAL AT BEDSIDE
--- NOTE | 2019-10-17 02:13 | NUR ---
BEDSIDE REPORT GIVEN TO GAGE BELCHER. PLAN OF CARE DISCUSSED.
--- NOTE | 2019-10-17 02:24 | NUR ---
REPORT RECEIVED, POC DISCUSSED, CARE ASSUMED. LINENS CHANGED 2ND TO PT SPILLING URINE FROM URINAL.
[2019-10-17] MEDS ORDERED: PIPERACILLIN/TAZO/PMX 3.375GM 50 ML ONE ×2 (03:20→10:01)
[2019-10-17] MEDS: PIPERACILLIN/TAZO/PMX 3.375GM 50 ML IV SCH ×4 (03:39→21:47)
[2019-10-17 04:59] LABS: ANION GAP 6 mmol/L (5-15); CHLORIDE 105 mmol/L (98-107); CREATININE 0.98 mg/dL (0.7-1.3)
[2019-10-17 05:00] LABS: BASOPHILS % (AUTO) 0 % (0-1); EOSINOPHILS % (AUTO) 3 % (1-7); LYMPHOCYTES % (AUTO) 22 % (22-44); MEAN CORPUSCULAR HEMOGLOBIN 28.5 pg (27.5-34.5); MEAN CORPUSCULAR HGB CONC 33.1 g/dL (33.2-36.2); MEAN PLATELET VOLUME 7.7 fL (7.4-10.4); MONOCYTES % (AUTO) 5 % (2-9); NEUTROPHILS # (AUTO) 5.53 x10^3/uL (1.8-6.8); NEUTROPHILS % (AUTO) 70 % (42-75); PLATELET COUNT 407 x10^3/uL (130-400); RED BLOOD COUNT 3.61 x10^6/uL (4.38-5.82); RED CELL DISTRIBUTION WIDTH 13.3 % (9.4-14.8)
[2019-10-17 05:01] LABS: BASOPHILS # (AUTO) 0.03 x10^3/uL (0-0.1); LYMPHOCYTES # (AUTO) 1.78 x10^3/uL (1-3.4); MD NO; MONOCYTES # (AUTO) 0.39 x10^3/uL (0.2-0.8)
[2019-10-17] MEDS ORDERED: HEPARIN 5,000 UNITS/ML, 1ML ONE (05:22)
[2019-10-17] MEDS: HEPARIN 5,000 UNITS/ML, 1ML SQ SCH ×3 (05:27→21:54)
--- NOTE | 2019-10-17 06:58 | NUR ---
REPORT TO DAVID ALMONTE. POC DISCUSSED. CARE RELEASED. PT HAS RESTED WELL THROUGH NIGHT, NAD. FAMILY MEMBER HAS BEEN AT BEDSIDE.
--- NOTE | 2019-10-17 07:00 | NUR ---
SBAR RPT REC'D FROM GAGE BELCHER AND PT CARE ASSUMED.
--- NOTE | 2019-10-17 07:57 | NUR ---
capacity management specialist: pt to MRI at this time
--- NOTE | 2019-10-17 08:52 | NUR ---
LATE ENTRY 0715, PT SLEEPING, RESP EVEN NON-LABORED.
[2019-10-17] MEDS ORDERED: GADOTERATE 7.5 MMOL/15 ML SYR ONE (08:53)
--- NOTE | 2019-10-17 08:53 | NUR ---
PT RTD FROM MRI. ASSESSMENT NOTED, VSS. MEAL TRAY ORDERED.
--- NOTE | 2019-10-17 09:03 | NUR ---
JOE RPT TO GAGE GARCIA.
--- NOTE | 2019-10-17 09:10 | NUR ---
REPORT RECEIVED AT BEDSIDE FROM GAGE HERNANDEZ, CONTACT ISOLATION PRECAUTIONS IN PLACE FOR HX MRSA. PT A&O, RESPS EVEN AND UNLABORED, NADN. BP AND SPO2 MONITORS IN PLACE.
--- NOTE | 2019-10-17 09:17 | NUR ---
ATTEMPTED TO CONTACT DANIEL MERLOS, NO ANSWER MESSAGE LEFT REGARDING 0900 FS = 369, PT HAS NO ORDERS FOR INSULIN COVERAGE.
[2019-10-17] MEDS ORDERED: DEXTROSE 50%, 50ML SYRINGE IVPush PRN (10:00)
[2019-10-17] MEDS ORDERED: DEXTROSE 4 GM TAB.CHEW PO PRN (10:00)
[2019-10-17] MEDS ORDERED: GLUCAGON 1 MG IM PRN (10:00)
[2019-10-17] MEDS ORDERED: LISINOPRIL 10 MG TABLET ONE (10:01)
--- NOTE | 2019-10-17 10:01 | NUR ---
humalog and lantus pens requested from pharmacy as they are not in ED [facility]
[2019-10-17] MEDS: LISINOPRIL 10 MG TABLET PO SCH (10:12)
[2019-10-17] MEDS: SODIUM CHLORIDE 0.9% 1,000 ML IV SCH (10:12)
[2019-10-17 10:39] LABS: HCT (SEDRATE) 34.3 % (39.2-51.8)
--- NOTE | 2019-10-17 11:00 | NUR ---
PT SLEEPING ON HOSPITAL BED, RESPS EVEN AND UNLABORED. NADN AT THIS TIME. INSULIN PENS RECEIVED FROM PHARMACY AT THIS TIME.
[2019-10-17 11:38] LABS: SEDIMENTATION RATE > 120 mm/hr (0-10)
--- NOTE | 2019-10-17 11:38 | NUR ---
report called to GAGE Richard. pt awaiting transport to [facility] .
--- NOTE | 2019-10-17 11:45 | NUR ---
this RN noted that med rec has not been completed in ED; RAY Patino notified. RAY Patino states she reviewed pt's home meds with pt, who states that he has been non-compliant with home meds. receiving GAGE Richard aware med rec needs to be updated at this time.
--- NOTE | 2019-10-17 11:45 | NUR ---
receiving RN aware pt in need of fingerstick recheck and insulin (humalog and lantus). pens tubed to floor. pt transported to medical floor, stefania at transport.
[2019-10-17] MEDS ORDERED: VANCOMYCIN 1,500 MG in SODIUM CHLORIDE 0.9% 250 ML IV ONE (12:00)
[2019-10-17] MEDS: INSULIN GLARGINE 100 UNITS/ML, PEN SQ-INSULIN SCH (12:51)
[2019-10-17] MEDS: SODIUM CHLORIDE FLUSH 10ML SYR IVF SCH ×2 (12:51→21:46)
[2019-10-17] MEDS: INSULIN LISPRO 100 UNITS/ML, PEN SQ-INSULIN SCH ×3 (12:52→21:47)
[2019-10-17 13:30] VITALS: BP 135/95
[2019-10-17 14:27] VITALS: BP 143/93
[2019-10-17 18:39] VITALS: BP 159/99
[2019-10-18 01:11] VITALS: BP 115/65
[2019-10-18] MEDS: SODIUM CHLORIDE 0.9% 1,000 ML IV SCH ×2 (03:36→20:03)
[2019-10-18] MEDS: PIPERACILLIN/TAZO/PMX 3.375GM 50 ML IV SCH ×4 (03:36→23:26)
[2019-10-18] MEDS: VANCOMYCIN 1,500 MG in SODIUM CHLORIDE 0.9% 250 ML IV SCH ×2 (04:09→21:39)
[2019-10-18] MEDS: HEPARIN 5,000 UNITS/ML, 1ML SQ SCH ×3 (04:19→21:38)
[2019-10-18 06:48] LABS: BASOPHILS # (AUTO) 0.02 x10^3/uL (0-0.1); BASOPHILS % (AUTO) 0 % (0-1); EOSINOPHILS # (AUTO) 0.19 x10^3/uL (0-0.4); EOSINOPHILS % (AUTO) 3 % (1-7); LYMPHOCYTES # (AUTO) 1.79 x10^3/uL (1-3.4); LYMPHOCYTES % (AUTO) 25 % (22-44); MD NO; MEAN CORPUSCULAR HEMOGLOBIN 28.4 pg (27.5-34.5); MEAN CORPUSCULAR HGB CONC 33.3 g/dL (33.2-36.2); MEAN CORPUSCULAR VOLUME 85.2 fL (81-97); MEAN PLATELET VOLUME 7.7 fL (7.4-10.4); MONOCYTES # (AUTO) 0.46 x10^3/uL (0.2-0.8); MONOCYTES % (AUTO) 6 % (2-9); NEUTROPHILS # (AUTO) 4.74 x10^3/uL (1.8-6.8); NEUTROPHILS % (AUTO) 66 % (42-75); PLATELET COUNT 443 x10^3/uL (130-400); RED BLOOD COUNT 3.48 x10^6/uL (4.38-5.82); RED CELL DISTRIBUTION WIDTH 13.3 % (9.4-14.8)
[2019-10-18 06:52] LABS: CHLORIDE 106 mmol/L (98-107)
[2019-10-18 07:03] LABS: ALANINE AMINOTRANSFERASE 8 U/L (12-78); ALBUMIN 1.5 g/dL (3.4-5.0); ALKALINE PHOSPHATASE 96 U/L (45-117); ANION GAP 7 mmol/L (5-15); BILIRUBIN,TOTAL 0.5 mg/dL (0.2-1.0); CALCIUM 8.3 mg/dL (8.5-10.1); CREATININE 1.14 mg/dL (0.7-1.3); TOTAL PROTEIN 6.8 g/dL (6.4-8.2)
[2019-10-18] MEDS: LISINOPRIL 10 MG TABLET PO SCH (07:56)
[2019-10-18] MEDS: INSULIN LISPRO 100 UNITS/ML, PEN SQ-INSULIN SCH ×4 (08:00→21:38)
[2019-10-18] MEDS: SODIUM CHLORIDE FLUSH 10ML SYR IVF SCH ×2 (08:01→21:39)
[2019-10-18] MEDS: INSULIN GLARGINE 100 UNITS/ML, PEN SQ-INSULIN SCH (08:01)
[2019-10-18 08:14] VITALS: BP 163/74
[2019-10-18 08:16] VITALS: BP 138/83
[2019-10-18] MEDS ORDERED: LACTATED RINGERS 1,000 ML IV SCH (14:26)
[2019-10-18] MEDS ORDERED: PROPOFOL 50 ML ONE (14:34)
[2019-10-18] MEDS ORDERED: FENTANYL PF 100 MCG/2ML ONE (14:37)
[2019-10-18] MEDS ORDERED: DIAZEPAM 5 MG/ML, 2ML IVPush PRN (15:30)
[2019-10-18] MEDS ORDERED: DIPHENHYDRAMINE 50 MG/ML, 1ML IVPush PRN (15:30)
[2019-10-18] MEDS ORDERED: MIDAZOLAM 1 MG/ML, 2ML IV PRN (15:30)
[2019-10-18] MEDS ORDERED: FENTANYL PF 100 MCG/2ML IV PRN (15:30)
[2019-10-18] MEDS ORDERED: EPHEDRINE 50 MG/ML, 1ML IVPush PRN (15:30)
[2019-10-18] MEDS ORDERED: MEPERIDINE/PF 25MG/ML,1ML IVPush PRN (15:30)
[2019-10-18] MEDS ORDERED: MORPHINE SULFATE 4 MG/ML, 1ML IVPush PRN (15:30)
[2019-10-18] MEDS ORDERED: OXYcodone 5 MG/5 ML ORAL.SOL UDC PO PRN (15:30)
[2019-10-18] MEDS ORDERED: PROMETHAZINE 25 MG/ML, 1ML IV PRN (15:30)
[2019-10-18] MEDS ORDERED: EPHEDRINE 50 MG/ML, 1ML IM PRN (15:30)
[2019-10-18] MEDS ORDERED: ONDANSETRON 2MG/ML, 2ML IV PRN (15:30)
[2019-10-18] MEDS ORDERED: ONDANSETRON ODT 8 MG PO PRN (15:30)
[2019-10-18 20:10] VITALS: BP 149/104
[2019-10-19 01:58] VITALS: BP 152/102
[2019-10-19] MEDS: HEPARIN 5,000 UNITS/ML, 1ML SQ SCH ×2 (05:39→16:13)
[2019-10-19] MEDS: PIPERACILLIN/TAZO/PMX 3.375GM 50 ML IV SCH ×3 (05:40→20:40)
[2019-10-19 06:19] LABS: BASOPHILS # (AUTO) 0.02 x10^3/uL (0-0.1); BASOPHILS % (AUTO) 0 % (0-1); EOSINOPHILS # (AUTO) 0.28 x10^3/uL (0-0.4); EOSINOPHILS % (AUTO) 4 % (1-7); LYMPHOCYTES # (AUTO) 1.47 x10^3/uL (1-3.4); LYMPHOCYTES % (AUTO) 21 % (22-44); MD NO; MEAN CORPUSCULAR HEMOGLOBIN 28.7 pg (27.5-34.5); MEAN CORPUSCULAR HGB CONC 33.1 g/dL (33.2-36.2); MEAN CORPUSCULAR VOLUME 86.8 fL (81-97); MONOCYTES # (AUTO) 0.43 x10^3/uL (0.2-0.8); MONOCYTES % (AUTO) 6 % (2-9); NEUTROPHILS # (AUTO) 4.69 x10^3/uL (1.8-6.8); NEUTROPHILS % (AUTO) 68 % (42-75); PLATELET COUNT 442 x10^3/uL (130-400); RED CELL DISTRIBUTION WIDTH 13.1 % (9.4-14.8)
[2019-10-19] MEDS: SODIUM CHLORIDE FLUSH 10ML SYR IVF SCH ×2 (08:55→20:40)
[2019-10-19] MEDS: LISINOPRIL 10 MG TABLET PO SCH (08:55)
[2019-10-19] MEDS: INSULIN LISPRO 100 UNITS/ML, PEN SQ-INSULIN SCH ×4 (08:57→20:39)
[2019-10-19] MEDS ORDERED: INSULIN GLARGINE 100 UNITS/ML, PEN SQ-INSULIN SCH (09:00)
[2019-10-19 10:08] VITALS: BP 119/78
[2019-10-19 12:15] VITALS: BP 150/99
[2019-10-19] MEDS: VANCOMYCIN 1,500 MG in SODIUM CHLORIDE 0.9% 250 ML IV SCH (17:08)
[2019-10-19 19:12] VITALS: BP 152/98
[2019-10-20] MEDS: PIPERACILLIN/TAZO/PMX 3.375GM 50 ML IV SCH ×4 (02:18→21:06)
[2019-10-20] MEDS: HEPARIN 5,000 UNITS/ML, 1ML SQ SCH ×3 (02:27→21:06)
[2019-10-20 03:54] VITALS: BP 138/88
[2019-10-20] MEDS ORDERED: CALCIUM GLUCONATE 4.6 MEQ in SODIUM CHLORIDE 0.9% 50 ML IV ONE (07:30)
[2019-10-20] MEDS: LISINOPRIL 10 MG TABLET PO SCH (07:49)
[2019-10-20] MEDS: INSULIN LISPRO 100 UNITS/ML, PEN SQ-INSULIN SCH ×4 (07:50→21:07)
[2019-10-20 08:15] VITALS: BP 142/92
[2019-10-20] MEDS ORDERED: INSULIN GLARGINE 100 UNITS/ML, PEN SQ-INSULIN SCH (09:00)
[2019-10-20] MEDS: SODIUM CHLORIDE FLUSH 10ML SYR IVF SCH ×2 (11:39→21:13)
[2019-10-20] MEDS: SODIUM CHLORIDE 0.9% 1,000 ML IV SCH (11:50)
[2019-10-20] MEDS: VANCOMYCIN 1,500 MG in SODIUM CHLORIDE 0.9% 250 ML IV SCH (12:37)
[2019-10-20 19:16] VITALS: BP 132/89
[2019-10-21] MEDS: PIPERACILLIN/TAZO/PMX 3.375GM 50 ML IV SCH (02:37)
[2019-10-21 03:21] VITALS: BP 159/104
[2019-10-21] MEDS: VANCOMYCIN 1,500 MG in SODIUM CHLORIDE 0.9% 250 ML IV SCH (04:00)
[2019-10-21] MEDS: HEPARIN 5,000 UNITS/ML, 1ML SQ SCH ×3 (04:00→20:12)
[2019-10-21 04:30] VITALS: BP 130/87
[2019-10-21 05:36] LABS: BASOPHILS # (AUTO) 0.03 x10^3/uL (0-0.1); BASOPHILS % (AUTO) 0 % (0-1); EOSINOPHILS # (AUTO) 0.35 x10^3/uL (0-0.4); EOSINOPHILS % (AUTO) 5 % (1-7); LYMPHOCYTES # (AUTO) 1.64 x10^3/uL (1-3.4); LYMPHOCYTES % (AUTO) 22 % (22-44); MD NO; MEAN CORPUSCULAR HEMOGLOBIN 28.7 pg (27.5-34.5); MEAN CORPUSCULAR HGB CONC 33.2 g/dL (33.2-36.2); MEAN CORPUSCULAR VOLUME 86.4 fL (81-97); MEAN PLATELET VOLUME 8.2 fL (7.4-10.4); MONOCYTES # (AUTO) 0.36 x10^3/uL (0.2-0.8); MONOCYTES % (AUTO) 5 % (2-9); NEUTROPHILS # (AUTO) 5.11 x10^3/uL (1.8-6.8); NEUTROPHILS % (AUTO) 68 % (42-75); PLATELET COUNT 493 x10^3/uL (130-400); RED BLOOD COUNT 3.63 x10^6/uL (4.38-5.82); RED CELL DISTRIBUTION WIDTH 13.4 % (9.4-14.8)
[2019-10-21 05:43] LABS: ANION GAP 5 mmol/L (5-15); CALCIUM 8.2 mg/dL (8.5-10.1); CHLORIDE 103 mmol/L (98-107)
[2019-10-21 05:44] LABS: ALBUMIN 1.6 g/dL (3.4-5.0)
[2019-10-21] MEDS ORDERED: CEFAZOLIN 1,000 MG IM SCH (06:30)
[2019-10-21 07:45] VITALS: BP 156/92
[2019-10-21] MEDS: SODIUM CHLORIDE FLUSH 10ML SYR IVF SCH ×2 (08:46→20:12)
[2019-10-21] MEDS: CARVEDILOL 12.5 MG TABLET PO SCH ×2 (08:46→18:31)
[2019-10-21] MEDS: INSULIN LISPRO 100 UNITS/ML, PEN SQ-INSULIN SCH ×4 (08:48→22:13)
[2019-10-21] MEDS: SODIUM CHLORIDE 0.9% 1,000 ML IV SCH ×2 (08:50→18:33)
[2019-10-21] MEDS: INSULIN GLARGINE 100 UNITS/ML, PEN SQ-INSULIN SCH (09:00)
[2019-10-21 14:00] VITALS: BP 145/90
[2019-10-21] MEDS: CEFAZOLIN 2,000 MG in SODIUM CHLORIDE 0.9% 50 ML IV SCH (18:31)
[2019-10-21 19:45] VITALS: BP 148/97
[2019-10-22 00:09] VITALS: BP 162/96
[2019-10-22] MEDS: SODIUM CHLORIDE 0.9% 1,000 ML IV SCH ×2 (05:17→14:26)
[2019-10-22 05:47] LABS: HCT (SEDRATE) 28.2 % (39.2-51.8)
[2019-10-22 05:57] LABS: BASOPHILS # (AUTO) 0.03 x10^3/uL (0-0.1); BASOPHILS % (AUTO) 1 % (0-1); EOSINOPHILS % (AUTO) 6 % (1-7); LYMPHOCYTES # (AUTO) 1.95 x10^3/uL (1-3.4); LYMPHOCYTES % (AUTO) 28 % (22-44); MD NO; MEAN CORPUSCULAR HEMOGLOBIN 28.6 pg (27.5-34.5); MEAN CORPUSCULAR HGB CONC 32.9 g/dL (33.2-36.2); MEAN CORPUSCULAR VOLUME 86.8 fL (81-97); MEAN PLATELET VOLUME 7.8 fL (7.4-10.4); MONOCYTES # (AUTO) 0.32 x10^3/uL (0.2-0.8); MONOCYTES % (AUTO) 5 % (2-9); NEUTROPHILS # (AUTO) 4.23 x10^3/uL (1.8-6.8); NEUTROPHILS % (AUTO) 61 % (42-75); PLATELET COUNT 525 x10^3/uL (130-400); RED BLOOD COUNT 3.13 x10^6/uL (4.38-5.82); RED CELL DISTRIBUTION WIDTH 13.1 % (9.4-14.8)
[2019-10-22 05:59] LABS: ANION GAP 6 mmol/L (5-15); CALCIUM 8.6 mg/dL (8.5-10.1); CHLORIDE 110 mmol/L (98-107)
[2019-10-22] MEDS: HEPARIN 5,000 UNITS/ML, 1ML SQ SCH ×3 (06:05→22:30)
[2019-10-22] MEDS: CARVEDILOL 12.5 MG TABLET PO SCH (06:06)
[2019-10-22 08:00] VITALS: BP 148/84
[2019-10-22] MEDS ORDERED: CARVEDILOL 12.5 MG TABLET PO ONE (08:00)
[2019-10-22] MEDS: CEFAZOLIN 2,000 MG in SODIUM CHLORIDE 0.9% 50 ML IV SCH ×2 (08:23→17:44)
[2019-10-22] MEDS: INSULIN GLARGINE 100 UNITS/ML, PEN SQ-INSULIN SCH (08:25)
[2019-10-22] MEDS: INSULIN LISPRO 100 UNITS/ML, PEN SQ-INSULIN SCH ×4 (08:25→23:32)
[2019-10-22] MEDS: SODIUM CHLORIDE FLUSH 10ML SYR IVF SCH ×2 (08:26→21:00)
[2019-10-22 14:00] VITALS: BP 134/89
[2019-10-22] MEDS: CARVEDILOL 25 MG TABLET PO SCH (17:44)
[2019-10-22 18:55] VITALS: BP 127/81
[2019-10-23 01:12] VITALS: BP 145/95
[2019-10-23] MEDS: CEFAZOLIN 2,000 MG in SODIUM CHLORIDE 0.9% 50 ML IV SCH ×3 (01:27→17:37)
[2019-10-23] MEDS: CARVEDILOL 25 MG TABLET PO SCH ×2 (05:42→17:37)
[2019-10-23] MEDS: HEPARIN 5,000 UNITS/ML, 1ML SQ SCH ×3 (05:42→21:47)
[2019-10-23 05:59] LABS: ANION GAP 5 mmol/L (5-15); CALCIUM 8.6 mg/dL (8.5-10.1); CHLORIDE 108 mmol/L (98-107)
[2019-10-23 06:00] LABS: CREATININE 1.39 mg/dL (0.7-1.3)
[2019-10-23 06:01] LABS: BASOPHILS # (AUTO) 0.03 x10^3/uL (0-0.1); BASOPHILS % (AUTO) 0 % (0-1); EOSINOPHILS # (AUTO) 0.29 x10^3/uL (0-0.4); EOSINOPHILS % (AUTO) 3 % (1-7); LYMPHOCYTES # (AUTO) 1.35 x10^3/uL (1-3.4); LYMPHOCYTES % (AUTO) 14 % (22-44); MD NO; MEAN CORPUSCULAR HEMOGLOBIN 28.2 pg (27.5-34.5); MEAN CORPUSCULAR HGB CONC 32.7 g/dL (33.2-36.2); MEAN PLATELET VOLUME 7.9 fL (7.4-10.4); MONOCYTES # (AUTO) 0.23 x10^3/uL (0.2-0.8); MONOCYTES % (AUTO) 2 % (2-9); NEUTROPHILS # (AUTO) 7.86 x10^3/uL (1.8-6.8); NEUTROPHILS % (AUTO) 81 % (42-75); PLATELET COUNT 537 x10^3/uL (130-400); RED BLOOD COUNT 3.86 x10^6/uL (4.38-5.82); RED CELL DISTRIBUTION WIDTH 13.5 % (9.4-14.8)
[2019-10-23] MEDS: SODIUM CHLORIDE 0.9% 1,000 ML IV SCH ×2 (07:00→17:00)
[2019-10-23 07:35] VITALS: BP 130/87
[2019-10-23] MEDS: INSULIN LISPRO 100 UNITS/ML, PEN SQ-INSULIN SCH ×4 (07:55→21:46)
[2019-10-23] MEDS: INSULIN GLARGINE 100 UNITS/ML, PEN SQ-INSULIN SCH (07:55)
[2019-10-23] MEDS: SODIUM CHLORIDE FLUSH 10ML SYR IVF SCH ×2 (09:07→21:47)
[2019-10-23 12:50] VITALS: BP 110/71
[2019-10-23 19:42] VITALS: BP 107/69
[2019-10-24] MEDS: CEFAZOLIN 2,000 MG in SODIUM CHLORIDE 0.9% 50 ML IV SCH ×2 (01:27→23:59)
[2019-10-24 02:06] VITALS: BP 154/93
[2019-10-24 05:24] LABS: BASOPHILS # (AUTO) 0.05 x10^3/uL (0-0.1); BASOPHILS % (AUTO) 1 % (0-1); EOSINOPHILS # (AUTO) 0.24 x10^3/uL (0-0.4); EOSINOPHILS % (AUTO) 4 % (1-7); LYMPHOCYTES # (AUTO) 1.86 x10^3/uL (1-3.4); LYMPHOCYTES % (AUTO) 33 % (22-44); MD NO; MEAN CORPUSCULAR HEMOGLOBIN 28.3 pg (27.5-34.5); MEAN CORPUSCULAR HGB CONC 33.1 g/dL (33.2-36.2); MEAN CORPUSCULAR VOLUME 85.6 fL (81-97); MEAN PLATELET VOLUME 7.6 fL (7.4-10.4); MONOCYTES # (AUTO) 0.33 x10^3/uL (0.2-0.8); MONOCYTES % (AUTO) 6 % (2-9); NEUTROPHILS # (AUTO) 3.16 x10^3/uL (1.8-6.8); NEUTROPHILS % (AUTO) 56 % (42-75); PLATELET COUNT 470 x10^3/uL (130-400); RED CELL DISTRIBUTION WIDTH 13.5 % (9.4-14.8)
[2019-10-24 05:26] LABS: ANION GAP 5 mmol/L (5-15); CALCIUM 7.8 mg/dL (8.5-10.1); CHLORIDE 104 mmol/L (98-107); CREATININE 1.79 mg/dL (0.7-1.3)
[2019-10-24 05:43] VITALS: BP 122/76
[2019-10-24] MEDS: CARVEDILOL 25 MG TABLET PO SCH ×2 (05:46→18:05)
[2019-10-24] MEDS: HEPARIN 5,000 UNITS/ML, 1ML SQ SCH ×3 (05:47→21:18)
[2019-10-24] MEDS: SODIUM CHLORIDE 0.9% 1,000 ML IV SCH ×2 (06:43→16:30)
[2019-10-24 08:26] VITALS: BP 106/71
[2019-10-24] MEDS: INSULIN LISPRO 100 UNITS/ML, PEN SQ-INSULIN SCH ×4 (08:31→21:18)
[2019-10-24] MEDS: SODIUM CHLORIDE FLUSH 10ML SYR IVF SCH ×2 (08:32→21:19)
[2019-10-24] MEDS: INSULIN GLARGINE 100 UNITS/ML, PEN SQ-INSULIN SCH (08:32)
[2019-10-24] MEDS ORDERED: CEFAZOLIN 2,000 MG in SODIUM CHLORIDE 0.9% 50 ML IV ONE (12:00)
[2019-10-24] MEDS ORDERED: CEFAZOLIN 2,000 MG in SODIUM CHLORIDE 0.9% 50 ML IV SCH (12:00)
[2019-10-24 13:51] VITALS: BP 128/83
[2019-10-24 19:39] VITALS: BP 121/77
[2019-10-25 00:20] VITALS: BP 134/86
[2019-10-25] MEDS: SODIUM CHLORIDE 0.9% 1,000 ML IV SCH (02:29)
[2019-10-25] MEDS: CARVEDILOL 25 MG TABLET PO SCH ×2 (05:32→17:19)
[2019-10-25] MEDS: HEPARIN 5,000 UNITS/ML, 1ML SQ SCH ×3 (05:32→21:38)
[2019-10-25 05:55] LABS: BASOPHILS # (AUTO) 0.04 x10^3/uL (0-0.1); BASOPHILS % (AUTO) 1 % (0-1); EOSINOPHILS # (AUTO) 0.36 x10^3/uL (0-0.4); EOSINOPHILS % (AUTO) 6 % (1-7); LYMPHOCYTES # (AUTO) 1.96 x10^3/uL (1-3.4); LYMPHOCYTES % (AUTO) 31 % (22-44); MD NO; MEAN CORPUSCULAR HEMOGLOBIN 28.7 pg (27.5-34.5); MEAN CORPUSCULAR HGB CONC 32.7 g/dL (33.2-36.2); MEAN CORPUSCULAR VOLUME 87.7 fL (81-97); MEAN PLATELET VOLUME 8.4 fL (7.4-10.4); MONOCYTES # (AUTO) 0.37 x10^3/uL (0.2-0.8); MONOCYTES % (AUTO) 6 % (2-9); NEUTROPHILS # (AUTO) 3.68 x10^3/uL (1.8-6.8); NEUTROPHILS % (AUTO) 58 % (42-75); PLATELET COUNT 492 x10^3/uL (130-400); RED BLOOD COUNT 3.52 x10^6/uL (4.38-5.82); RED CELL DISTRIBUTION WIDTH 14.2 % (9.4-14.8)
[2019-10-25 06:13] LABS: CHLORIDE 110 mmol/L (98-107)
[2019-10-25 06:25] LABS: ANION GAP 5 mmol/L (5-15); CALCIUM 8.5 mg/dL (8.5-10.1); CREATININE 1.55 mg/dL (0.7-1.3)
[2019-10-25 09:15] VITALS: BP 150/99
[2019-10-25] MEDS: INSULIN LISPRO 100 UNITS/ML, PEN SQ-INSULIN SCH ×4 (10:09→21:38)
[2019-10-25] MEDS: SODIUM CHLORIDE FLUSH 10ML SYR IVF SCH ×2 (10:09→21:39)
[2019-10-25] MEDS: INSULIN GLARGINE 100 UNITS/ML, PEN SQ-INSULIN SCH (10:10)
[2019-10-25] MEDS: CEFAZOLIN 2,000 MG in SODIUM CHLORIDE 0.9% 50 ML IV SCH (12:08)
[2019-10-25 15:59] VITALS: BP 144/89
[2019-10-25 20:19] VITALS: BP 149/97
[2019-10-26] MEDS: CEFAZOLIN 2,000 MG in SODIUM CHLORIDE 0.9% 50 ML IV SCH ×3 (00:10→22:06)
[2019-10-26 02:43] VITALS: BP 149/94
[2019-10-26] MEDS: HEPARIN 5,000 UNITS/ML, 1ML SQ SCH ×3 (05:44→22:07)
[2019-10-26] MEDS: CARVEDILOL 25 MG TABLET PO SCH ×2 (05:44→18:13)
[2019-10-26 06:44] VITALS: BP 134/83
[2019-10-26] MEDS: INSULIN LISPRO 100 UNITS/ML, PEN SQ-INSULIN SCH ×4 (07:00→22:06)
[2019-10-26 07:46] LABS: ANION GAP 5 mmol/L (5-15); CALCIUM 8.1 mg/dL (8.5-10.1); CHLORIDE 116 mmol/L (98-107); CREATININE 1.56 mg/dL (0.7-1.3)
[2019-10-26] MEDS: INSULIN GLARGINE 100 UNITS/ML, PEN SQ-INSULIN SCH ×2 (07:54→10:34)
[2019-10-26] MEDS: SODIUM CHLORIDE FLUSH 10ML SYR IVF SCH ×2 (10:34→22:06)
[2019-10-26 12:03] VITALS: BP 154/96
[2019-10-26] MEDS: AMLODIPINE 5 MG TABLET PO SCH (12:07)
[2019-10-26 20:42] VITALS: BP 120/78
[2019-10-27 01:00] VITALS: BP 133/75
[2019-10-27] MEDS: HEPARIN 5,000 UNITS/ML, 1ML SQ SCH ×3 (05:51→21:48)
[2019-10-27] MEDS: CARVEDILOL 25 MG TABLET PO SCH ×2 (05:52→18:09)
[2019-10-27] MEDS: CEFAZOLIN 2,000 MG in SODIUM CHLORIDE 0.9% 50 ML IV SCH ×3 (05:52→21:48)
[2019-10-27 06:00] LABS: ANION GAP 7 mmol/L (5-15); CALCIUM 8.4 mg/dL (8.5-10.1); CHLORIDE 108 mmol/L (98-107); CREATININE 1.46 mg/dL (0.7-1.3)
[2019-10-27 07:52] VITALS: BP 128/86
[2019-10-27] MEDS: INSULIN LISPRO 100 UNITS/ML, PEN SQ-INSULIN SCH ×4 (08:08→20:45)
[2019-10-27] MEDS: AMLODIPINE 5 MG TABLET PO SCH (08:08)
[2019-10-27] MEDS: INSULIN GLARGINE 100 UNITS/ML, PEN SQ-INSULIN SCH (08:08)
[2019-10-27] MEDS: SODIUM CHLORIDE FLUSH 10ML SYR IVF SCH ×2 (08:09→20:44)
[2019-10-27 14:00] VITALS: BP 124/80
[2019-10-27 19:17] VITALS: BP 141/86
[2019-10-28 01:29] VITALS: BP 148/91
[2019-10-28] MEDS: HEPARIN 5,000 UNITS/ML, 1ML SQ SCH ×3 (05:57→23:42)
[2019-10-28] MEDS: CEFAZOLIN 2,000 MG in SODIUM CHLORIDE 0.9% 50 ML IV SCH ×3 (05:57→23:40)
[2019-10-28] MEDS: CARVEDILOL 25 MG TABLET PO SCH ×2 (05:57→18:20)
[2019-10-28 07:13] LABS: ANION GAP 7 mmol/L (5-15); CHLORIDE 112 mmol/L (98-107); CREATININE 1.47 mg/dL (0.7-1.3)
[2019-10-28 07:26] VITALS: BP 126/79
[2019-10-28] MEDS: INSULIN GLARGINE 100 UNITS/ML, PEN SQ-INSULIN SCH (07:41)
[2019-10-28] MEDS: AMLODIPINE 5 MG TABLET PO SCH (07:41)
[2019-10-28] MEDS: INSULIN LISPRO 100 UNITS/ML, PEN SQ-INSULIN SCH ×4 (07:42→20:25)
[2019-10-28] MEDS: SODIUM CHLORIDE FLUSH 10ML SYR IVF SCH ×2 (07:42→20:25)
[2019-10-28 13:10] VITALS: BP 133/79
[2019-10-28 19:48] VITALS: BP 117/74
[2019-10-29 01:41] VITALS: BP 123/88
[2019-10-29] MEDS: CARVEDILOL 25 MG TABLET PO SCH ×2 (06:17→16:48)
[2019-10-29] MEDS: CEFAZOLIN 2,000 MG in SODIUM CHLORIDE 0.9% 50 ML IV SCH ×3 (06:17→22:35)
[2019-10-29 06:23] LABS: CHLORIDE 109 mmol/L (98-107)
[2019-10-29 06:35] LABS: ANION GAP 6 mmol/L (5-15); CALCIUM 8.6 mg/dL (8.5-10.1)
[2019-10-29 06:54] VITALS: BP 118/78
[2019-10-29] MEDS: INSULIN LISPRO 100 UNITS/ML, PEN SQ-INSULIN SCH ×4 (07:00→21:15)
[2019-10-29] MEDS: AMLODIPINE 5 MG TABLET PO SCH (08:14)
[2019-10-29] MEDS: HEPARIN 5,000 UNITS/ML, 1ML SQ SCH ×2 (08:14→16:48)
[2019-10-29] MEDS: INSULIN GLARGINE 100 UNITS/ML, PEN SQ-INSULIN SCH (08:15)
[2019-10-29] MEDS: SODIUM CHLORIDE FLUSH 10ML SYR IVF SCH ×2 (09:00→21:00)
[2019-10-29 14:00] VITALS: BP 154/88
[2019-10-29 19:10] VITALS: BP 127/81
[2019-10-30] MEDS: HEPARIN 5,000 UNITS/ML, 1ML SQ SCH ×3 (02:06→17:21)
[2019-10-30 03:04] VITALS: BP 162/102
[2019-10-30] MEDS: CARVEDILOL 25 MG TABLET PO SCH ×2 (06:04→17:21)
[2019-10-30] MEDS: CEFAZOLIN 2,000 MG in SODIUM CHLORIDE 0.9% 50 ML IV SCH ×3 (06:04→22:04)
[2019-10-30] MEDS ORDERED: TRAZODONE 50MG TABLET PO PRN (07:30)
[2019-10-30] MEDS: INSULIN GLARGINE 100 UNITS/ML, PEN SQ-INSULIN SCH (07:36)
[2019-10-30] MEDS: AMLODIPINE 10 MG TAB PO SCH (07:37)
[2019-10-30] MEDS: INSULIN LISPRO 100 UNITS/ML, PEN SQ-INSULIN SCH ×4 (07:37→22:04)
[2019-10-30] MEDS: SODIUM CHLORIDE FLUSH 10ML SYR IVF SCH ×2 (07:40→22:02)
[2019-10-30 09:10] VITALS: BP 118/74
[2019-10-30 13:22] VITALS: BP 127/79
[2019-10-30] MEDS: DAKIN'S SOLUTION 1/4 STRENGTH 1,000 ML IRRIG SOLN EXT SCH (13:32)
[2019-10-30 19:06] VITALS: BP 119/79
[2019-10-31] MEDS: HEPARIN 5,000 UNITS/ML, 1ML SQ SCH ×3 (01:00→16:13)
[2019-10-31 02:06] VITALS: BP 133/75
[2019-10-31 05:25] VITALS: BP 157/100
[2019-10-31] MEDS: CARVEDILOL 25 MG TABLET PO SCH ×2 (05:28→17:59)
[2019-10-31] MEDS: CEFAZOLIN 2,000 MG in SODIUM CHLORIDE 0.9% 50 ML IV SCH ×3 (05:29→21:58)
[2019-10-31 07:32] VITALS: BP 119/79
[2019-10-31] MEDS: INSULIN LISPRO 100 UNITS/ML, PEN SQ-INSULIN SCH ×4 (07:43→21:00)
[2019-10-31] MEDS: AMLODIPINE 10 MG TAB PO SCH (07:44)
[2019-10-31] MEDS: INSULIN GLARGINE 100 UNITS/ML, PEN SQ-INSULIN SCH (07:44)
[2019-10-31] MEDS: SODIUM CHLORIDE FLUSH 10ML SYR IVF SCH ×2 (07:48→21:58)
[2019-10-31] MEDS: DAKIN'S SOLUTION 1/4 STRENGTH 1,000 ML IRRIG SOLN EXT SCH ×2 (07:48→09:00)
[2019-10-31 15:43] VITALS: BP 121/79
[2019-10-31] MEDS ORDERED: AMLO10TA8 PO (16:27)
[2019-10-31] MEDS ORDERED: INSU100I11 SQ-INSULIN (16:27)
[2019-10-31] MEDS ORDERED: ACET325T26 PO (16:27)
[2019-10-31] MEDS ORDERED: CARV25TA12 PO (16:27)
[2019-10-31 19:41] VITALS: BP 121/74
[2019-11-01] MEDS: HEPARIN 5,000 UNITS/ML, 1ML SQ SCH ×3 (00:38→17:35)
[2019-11-01 00:44] VITALS: BP 152/96
[2019-11-01 05:23] VITALS: BP 158/93
[2019-11-01] MEDS: CEFAZOLIN 2,000 MG in SODIUM CHLORIDE 0.9% 50 ML IV SCH (05:26)
[2019-11-01] MEDS: CARVEDILOL 25 MG TABLET PO SCH ×2 (05:27→17:35)
[2019-11-01] MEDS: INSULIN LISPRO 100 UNITS/ML, PEN SQ-INSULIN SCH ×5 (07:00→20:23)
[2019-11-01 08:10] VITALS: BP 125/97
[2019-11-01] MEDS: INSULIN GLARGINE 100 UNITS/ML, PEN SQ-INSULIN SCH (08:26)
[2019-11-01] MEDS: AMLODIPINE 10 MG TAB PO SCH (08:26)
[2019-11-01] MEDS: SODIUM CHLORIDE FLUSH 10ML SYR IVF SCH ×2 (08:28→21:00)
[2019-11-01] MEDS: DAKIN'S SOLUTION 1/4 STRENGTH 1,000 ML IRRIG SOLN EXT SCH (08:31)
[2019-11-01] MEDS: CEFTRIAXONE PMX 2GM/50ML 50 ML IV SCH (10:06)
[2019-11-01 13:50] VITALS: BP 135/88
[2019-11-01 19:43] VITALS: BP 127/72
[2019-11-02 01:56] VITALS: BP 132/83
[2019-11-02] MEDS: HEPARIN 5,000 UNITS/ML, 1ML SQ SCH ×2 (02:22→08:37)
[2019-11-02] MEDS: CARVEDILOL 25 MG TABLET PO SCH (05:38)
[2019-11-02 06:06] LABS: BASOPHILS # (AUTO) 0.03 x10^3/uL (0-0.1); BASOPHILS % (AUTO) 1 % (0-1); EOSINOPHILS # (AUTO) 0.24 x10^3/uL (0-0.4); EOSINOPHILS % (AUTO) 5 % (1-7); LYMPHOCYTES # (AUTO) 1.38 x10^3/uL (1-3.4); LYMPHOCYTES % (AUTO) 31 % (22-44); MD NO; MEAN CORPUSCULAR HEMOGLOBIN 28.9 pg (27.5-34.5); MEAN CORPUSCULAR HGB CONC 33.6 g/dL (33.2-36.2); MEAN PLATELET VOLUME 8.4 fL (7.4-10.4); MONOCYTES % (AUTO) 7 % (2-9); NEUTROPHILS # (AUTO) 2.56 x10^3/uL (1.8-6.8); NEUTROPHILS % (AUTO) 57 % (42-75); PLATELET COUNT 334 x10^3/uL (130-400); RED BLOOD COUNT 3.34 x10^6/uL (4.38-5.82); RED CELL DISTRIBUTION WIDTH 14.6 % (9.4-14.8)
[2019-11-02 06:21] LABS: ALANINE AMINOTRANSFERASE 14 U/L (12-78); ALBUMIN 2.3 g/dL (3.4-5.0); ANION GAP 6 mmol/L (5-15); CALCIUM 8.4 mg/dL (8.5-10.1); CHLORIDE 111 mmol/L (98-107); CREATININE 1.44 mg/dL (0.7-1.3)
[2019-11-02 06:23] LABS: ALKALINE PHOSPHATASE 66 U/L (45-117); BILIRUBIN,TOTAL 0.7 mg/dL (0.2-1.0); TOTAL PROTEIN 6.9 g/dL (6.4-8.2)
[2019-11-02] MEDS: INSULIN LISPRO 100 UNITS/ML, PEN SQ-INSULIN SCH ×2 (07:00→11:15)
[2019-11-02 08:00] VITALS: BP 125/79
[2019-11-02] MEDS: AMLODIPINE 10 MG TAB PO SCH (08:37)
[2019-11-02] MEDS: SODIUM CHLORIDE FLUSH 10ML SYR IVF SCH (08:37)
[2019-11-02] MEDS: DAKIN'S SOLUTION 1/4 STRENGTH 1,000 ML IRRIG SOLN EXT SCH (08:38)
[2019-11-02] MEDS: INSULIN GLARGINE 100 UNITS/ML, PEN SQ-INSULIN SCH (08:38)
[2019-11-02] MEDS: CEFTRIAXONE PMX 2GM/50ML 50 ML IV SCH (08:42)
[2019-11-02 12:22] VITALS: BP 125/79
== END 2019-11-02 16:10 | disposition left against medical advice (07) | DRG 500 ==
LOC: ED 18:06 → EDIP 18:07 → ED 18:14 → 3N 10-17 12:00
PROVIDERS: ADMIT Internal Medicine; ATTEND Internal Medicine
PROC: 0Y9N0ZZ Drainage of Left Foot, Open Approach (ICD-10-PCS; 2019-10-18)
PROC: 0LDW0ZZ Extraction of Left Foot Tendon, Open Approach (ICD-10-PCS; principal; 2019-10-18 14:00)
PROC: 02HV33Z Insertion of Infusion Device into Superior Vena Cava, Percutaneous Approach (ICD-10-PCS; 2019-11-01)
PROC: B548ZZA Ultrasonography of Superior Vena Cava, Guidance (ICD-10-PCS; 2019-11-01)
PROC: B5181ZA Fluoroscopy of Superior Vena Cava using Low Osmolar Contrast, Guidance (ICD-10-PCS; 2019-11-01)
DX: M65.872 Other synovitis and tenosynovitis, left ankle and foot (principal); E43 Unspecified severe protein-calorie malnutrition; L03.116 Cellulitis of left lower limb; L02.612 Cutaneous abscess of left foot; L97.329 Non-pressure chronic ulcer of left ankle with unspecified severity; N17.9 Acute kidney failure, unspecified; D63.8 Anemia in other chronic diseases classified elsewhere; E10.21 Type 1 diabetes mellitus with diabetic nephropathy; E10.621 Type 1 diabetes mellitus with foot ulcer; E10.65 Type 1 diabetes mellitus with hyperglycemia; I10 Essential (primary) hypertension; D47.3 Essential (hemorrhagic) thrombocythemia; L97.509 Non-pressure chronic ulcer of other part of unspecified foot with unspecified severity; M77.9 Enthesopathy, unspecified; Z79.4 Long term (current) use of insulin; Z83.3 Family history of diabetes mellitus; Z87.891 Personal history of nicotine dependence; Z91.14 Patient's other noncompliance with medication regimen; Z91.19 Patient's noncompliance with other medical treatment and regimen; Z68.26 Body mass index [BMI] 26.0-26.9, adult
CPT/HCPCS: 36415; 36573; 74176; 80048; 80053; 80069; 80202; 82010; 82803; 82947; 82962; 83036; 83605; 83735; 85025; 85651; 86140; 87040; 87070; 87075; 87102; 87147; 87205; 97162; 99285; G0378; J0610; J0690; J0696; J1644; J2543; J2704; J3010; J3370; A9575; C1751; J0360; J1815; J7030; J7050; J7120

== ENCOUNTER 2020-05-11 10:27 | Emergency (ER) | payer MEDICAID, OTHER ==
[~2020-05-11] VITALS: Ht 172.7 cm; Wt 97.7 kg
[~2020-05-11 10:27] MED LIST changes: +ACET325T26 PO; +AMLO10TA8 PO; +CARV25TA12 PO; +INSU100I11 SQ-INSULIN
--- NOTE | 2020-05-11 11:00 | NUR ---
THIS IS A 40 YO MALE PT BIB [facility] FROM HOME C/O CRUZ, RIGHT SIDED FACIAL DROOP AND RIGHT EYE BLINDNESS X "A FEW WEEKS". PT WAS ADMITTED AT [facility] AND PT STATES "THEY DID AN MRI AND EVERYTHING. THEY SAID IT WAS SOME NERVE THING WITH A C-WORD LIKE NERVES 3 AND 7 OR SOMETHING LIKE THAT." PT HERE FOR CONT CRUZ. RIGHT EYE PUPIL 5MM AND NON-REACTIVE. PT ABLE TO MOVE ALL EXTREMITIES W/O DIFFICULTY. 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 PT ON CONT BP, CARDIAC AND SPO2 MONITORS. PT STATES "YEAH, MY BLOOD PRESSURE IS ALWAYS HIGH". PT DENIES TAKING MEDICATIONS.
[2020-05-11] MEDS ORDERED: SODIUM CHLORIDE FLUSH 10ML SYR IVF ONE (11:30)
[2020-05-11] MEDS ORDERED: HYDROmorphone 1 MG/ML, 1ML INJ IVPush PRN (11:30)
[2020-05-11] MEDS ORDERED: ONDANSETRON 2MG/ML, 2ML IVPush ONE (11:30)
[2020-05-11] MEDS ORDERED: HYDROmorphone 1 MG/ML, 1ML INJ ONE (11:39)
[2020-05-11] MEDS ORDERED: ONDANSETRON 2MG/ML, 2ML ONE (11:40)
[2020-05-11 11:45] VITALS: BP 165/107
[2020-05-11 12:00] LABS: BASOPHILS # (AUTO) 0.02 x10^3/uL (0-0.1); BASOPHILS % (AUTO) 0 % (0-1); EOSINOPHILS # (AUTO) 0.02 x10^3/uL (0-0.4); EOSINOPHILS % (AUTO) 0 % (1-7); LYMPHOCYTES % (AUTO) 21 % (22-44); MD NO; MEAN CORPUSCULAR HEMOGLOBIN 28.2 pg (27.5-34.5); MEAN CORPUSCULAR HGB CONC 33.4 g/dL (33.2-36.2); MEAN CORPUSCULAR VOLUME 84.5 fL (81-97); MEAN PLATELET VOLUME 8.9 fL (7.4-10.4); MONOCYTES # (AUTO) 0.47 x10^3/uL (0.2-0.8); MONOCYTES % (AUTO) 6 % (2-9); NEUTROPHILS # (AUTO) 5.92 x10^3/uL (1.8-6.8); NEUTROPHILS % (AUTO) 73 % (42-75); PLATELET COUNT 323 x10^3/uL (130-400); RED CELL DISTRIBUTION WIDTH 14.9 % (9.4-14.8)
[2020-05-11 12:05] LABS: HCT (SEDRATE) 35.5 % (39.2-51.8)
[2020-05-11 12:10] LABS: ALANINE AMINOTRANSFERASE 15 U/L (12-78); ALBUMIN 2.3 g/dL (3.4-5.0); ANION GAP 4 mmol/L (5-15); CALCIUM 8.6 mg/dL (8.5-10.1); CHLORIDE 106 mmol/L (98-107); CREATININE 1.28 mg/dL (0.7-1.3)
[2020-05-11 12:12] LABS: ALKALINE PHOSPHATASE 140 U/L (45-117); BILIRUBIN,TOTAL 0.3 mg/dL (0.2-1.0); TOTAL PROTEIN 5.9 g/dL (6.4-8.2)
== END 2020-05-11 16:02 | disposition home or self-care (01) ==
LOC: ED 10:51
DX: H40.211 Acute angle-closure glaucoma, right eye (principal); G51.0 Bell's palsy; I10 Essential (primary) hypertension; E11.65 Type 2 diabetes mellitus with hyperglycemia; R51 Headache
CPT/HCPCS: 36415; 80053; 82962; 85025; 85651; 96374; 96375; 99284; J1170; J2405

== ENCOUNTER 2020-05-19 10:21 | Emergency (ER) | payer MEDICAID ==
[~2020-05-19] VITALS: Ht 175.3 cm; Wt 81.4 kg
--- NOTE | 2020-05-19 10:46 | NUR ---
requested records from [facility]
[2020-05-19] MEDS ORDERED: METOCLOPRAMIDE 5 MG/ML, 2ML ONE (10:48)
[2020-05-19] MEDS ORDERED: DIPHENHYDRAMINE 50 MG/ML, 1ML ONE (10:48)
[2020-05-19] MEDS ORDERED: SODIUM CHLORIDE FLUSH 10ML SYR IVF ONE (11:00)
[2020-05-19] MEDS ORDERED: METOCLOPRAMIDE 5 MG/ML, 2ML IVPush ONE (11:00)
[2020-05-19] MEDS ORDERED: SODIUM CHLORIDE 0.9% 1,000ML IVBOLUS ONE (11:00)
[2020-05-19] MEDS ORDERED: DIPHENHYDRAMINE 50 MG/ML, 1ML IVPush ONE (11:00)
--- NOTE | 2020-05-19 11:04 | NUR ---
RECEIVED REPORT FROM NILA ALMONTE. ASSUMING CARE AT THIS TIME.
[2020-05-19 11:09] LABS: BASOPHILS # (AUTO) 0.05 x10^3/uL (0-0.1); BASOPHILS % (AUTO) 1 % (0-1); EOSINOPHILS # (AUTO) 0.05 x10^3/uL (0-0.4); EOSINOPHILS % (AUTO) 1 % (1-7); LYMPHOCYTES # (AUTO) 1.06 x10^3/uL (1-3.4); LYMPHOCYTES % (AUTO) 14 % (22-44); MD NO; MEAN CORPUSCULAR HEMOGLOBIN 27.9 pg (27.5-34.5); MEAN CORPUSCULAR HGB CONC 32.7 g/dL (33.2-36.2); MEAN CORPUSCULAR VOLUME 85.3 fL (81-97); MEAN PLATELET VOLUME 8.1 fL (7.4-10.4); MONOCYTES # (AUTO) 0.27 x10^3/uL (0.2-0.8); MONOCYTES % (AUTO) 4 % (2-9); NEUTROPHILS # (AUTO) 6.04 x10^3/uL (1.8-6.8); NEUTROPHILS % (AUTO) 81 % (42-75); PLATELET COUNT 326 x10^3/uL (130-400); RED BLOOD COUNT 4.18 x10^6/uL (4.38-5.82); RED CELL DISTRIBUTION WIDTH 15.2 % (9.4-14.8)
--- NOTE | 2020-05-19 11:12 | NUR ---
PT AT CT
[2020-05-19 11:19] LABS: ALBUMIN 2.2 g/dL (3.4-5.0); ANION GAP 7 mmol/L (5-15); CALCIUM 8.5 mg/dL (8.5-10.1); CHLORIDE 103 mmol/L (98-107); CREATININE 1.19 mg/dL (0.7-1.3)
--- NOTE | 2020-05-19 11:27 | NUR ---
ALL RESULTS ARE BACK AT THIS TIME. CHART UP FOR RECHECK.
[2020-05-19 11:31] VITALS: BP 184/112
--- NOTE | 2020-05-19 11:31 | NUR ---
PT BACK FROM CT. IVF RUNNING. PT SLEEPING ON [employer]. NADN. FAMILY AT BEDSIDE.
[2020-05-19 12:57] LABS: HCT (SEDRATE) 35.7 % (39.2-51.8)
--- NOTE | 2020-05-19 13:06 | NUR ---
ALL RESULTS ARE BACK AT THIS TIME. CHART UP FOR RECHECK.
== END 2020-05-19 13:59 | disposition home or self-care (01) ==
LOC: ED 11:00
DX: G44.219 Episodic tension-type headache, not intractable (principal); H40.211 Acute angle-closure glaucoma, right eye; I10 Essential (primary) hypertension; E11.9 Type 2 diabetes mellitus without complications; G51.0 Bell's palsy
CPT/HCPCS: 36415; 70450; 80048; 82040; 85025; 85651; 96374; 96375; 99284; J1200; J2765; J7030

== ENCOUNTER 2020-06-08 17:54 | Inpatient (IN) | payer MEDICAID ==
[~2020-06-08] VITALS: Ht 175.3 cm; Wt 76.0 kg
[2020-06-08] MEDS ORDERED: SODIUM CHLORIDE FLUSH 10ML SYR IVF ONE ×2 (18:30)
[2020-06-08] MEDS ORDERED: ONDANSETRON 2MG/ML, 2ML IVPush ONE (18:30)
[2020-06-08] MEDS ORDERED: LABETALOL 5MG/ML, 20ML IVPush ONE ×3 (18:30→19:30)
[2020-06-08] MEDS ORDERED: LABETALOL 5MG/ML, 20ML ONE (18:36)
[2020-06-08] MEDS ORDERED: ONDANSETRON 2MG/ML, 2ML ONE (18:36)
[2020-06-08] MEDS ORDERED: MORPHINE SULFATE 4 MG/ML, 1ML ONE ×2 (18:40→19:35)
[2020-06-08] MEDS: MORPHINE SULFATE 4 MG/ML, 1ML IVPush PRN ×2 (18:42→19:40)
[2020-06-08 18:50] LABS: BASOPHILS # (AUTO) 0.03 x10^3/uL (0-0.1); BASOPHILS % (AUTO) 0 % (0-1); EOSINOPHILS # (AUTO) 0.12 x10^3/uL (0-0.4); EOSINOPHILS % (AUTO) 2 % (1-7); LYMPHOCYTES % (AUTO) 19 % (22-44); MD NO; MEAN CORPUSCULAR HEMOGLOBIN 28.8 pg (27.5-34.5); MEAN CORPUSCULAR VOLUME 84.8 fL (81-97); MEAN PLATELET VOLUME 7.9 fL (7.4-10.4); MONOCYTES # (AUTO) 0.32 x10^3/uL (0.2-0.8); MONOCYTES % (AUTO) 5 % (2-9); NEUTROPHILS # (AUTO) 4.56 x10^3/uL (1.8-6.8); NEUTROPHILS % (AUTO) 73 % (42-75); PLATELET COUNT 328 x10^3/uL (130-400); RED BLOOD COUNT 4.16 x10^6/uL (4.38-5.82); RED CELL DISTRIBUTION WIDTH 15.5 % (9.4-14.8)
[2020-06-08] MEDS ORDERED: NITROGLYCERIN OINT 2%, 1GM TP ONE ×2 (18:52→19:00)
--- NOTE | 2020-06-08 18:59 | NUR ---
IV ACCESS OBTAINED. HEAD OF BED 30 DEGREES. Q 5 MINUTE BP. NITRO PASTE ADMIN LEFT UPPER CHEST.
[2020-06-08 19:00] LABS: ALANINE AMINOTRANSFERASE 16 U/L (12-78); ALBUMIN 2.6 g/dL (3.4-5.0); ANION GAP 5 mmol/L (5-15); CALCIUM 8.3 mg/dL (8.5-10.1); CHLORIDE 108 mmol/L (98-107); CREATININE 1.37 mg/dL (0.7-1.3)
[2020-06-08 19:03] LABS: ALKALINE PHOSPHATASE 127 U/L (45-117); BILIRUBIN,TOTAL 0.6 mg/dL (0.2-1.0); TOTAL PROTEIN 6.4 g/dL (6.4-8.2)
[2020-06-08 19:04] LABS: INTERNATIONAL NORMALIZED RATIO 0.88 (0.93-1.1); PROTHROMBIN TIME 9.1 Seconds (9.6-11.5)
--- NOTE | 2020-06-08 19:20 | NUR ---
MD MADE AWARE OF BP. VERBAL ORDER FOR 10 MG MORE OF LABETALOL GIVEN.
[2020-06-08] MEDS ORDERED: NITROGLYCERIN/D5W PMX 250 ML ONE (19:31)
--- NOTE | 2020-06-08 19:50 | NUR ---
PER VERBAL ORDER FROM DR WALTER. NITRO TO START AT 25 MCG/MIN AND TITRAITE ACCORDINGLY PER PROTOCOL
[2020-06-08] MEDS ORDERED: NITROGLYCERIN/D5W PMX 250 ML IV PRN ×2 (20:00→23:30)
--- NOTE | 2020-06-08 20:02 | NUR ---
NITRO PASTE REMOVED FROM PT
--- NOTE | 2020-06-08 20:06 | NUR ---
PT PLACED ON O2 POST MORPHINE ADMIN
[2020-06-08] MEDS ORDERED: OMNIPAQUE 350 MG/ML, 100ML BOTTLE ONE (21:13)
--- NOTE | 2020-06-08 21:30 | NUR ---
Pt resting in bed, on right side. Pts vss, bp remains high but no distress. Pt sleeping with unlabored respirations.
--- NOTE | 2020-06-08 21:45 | NUR ---
Pt resting in bed, on right side. Pts vss, bp remains high but no distress. Pt sleeping with unlabored respirations.
--- NOTE | 2020-06-08 22:12 | NUR ---
FLOAT RN: PT'S NITRO DRIP DECREASED TO 10 MCG/MIN AFTER BP OF 148/91. PRIMARY RN KATYA WILKINS.
--- NOTE | 2020-06-08 22:17 | NUR ---
BEDSIDE REPORT FROM BAKARI ALMONTE, PT CARE TRANSFERRED AT THIS TIME. PT RESTING IN HOSPITAL BED, NAD, MOVES ALL EXTREMITIES. CALL LIGHT ON LAP, DENIES ADDITIONAL NEEDS AT THIS TIME. VASILIY.
[2020-06-08] MEDS ORDERED: PROM25TA10 PO (22:29)
[2020-06-08] MEDS ORDERED: LISI-170 PO (22:29)
[2020-06-08] MEDS ORDERED: TAMS-11 PO (22:29)
[2020-06-08] MEDS ORDERED: LATA2.5D3 RIGHTEYE (22:29)
[2020-06-08] MEDS ORDERED: [UNRECOGNIZED DRUG - OTHER] OP (22:29)
[2020-06-08] MEDS ORDERED: ASPI-515 PO (22:29)
[2020-06-08] MEDS ORDERED: HYDR-3343 PO (22:29)
--- NOTE | 2020-06-08 22:29 | NUR ---
RN CALLED DAUGHTER FOR MED REC.
--- NOTE | 2020-06-08 22:56 | NUR ---
REPORT CALLED TO DONI ALMONTE. ONCE ORDERS ARE PLACED PT TO BE TAKEN TO FLOOR. PT RESTING IN [facility] ON RIGHT SIDE, VASILIY LING.
[2020-06-08] MEDS ORDERED: PROMETHAZINE 25 MG/ML, 1ML IM PRN (23:30)
[2020-06-08] MEDS ORDERED: ONDANSETRON 2MG/ML, 2ML IVPush PRN (23:30)
[2020-06-08] MEDS ORDERED: LATANOPROST OPHTH 0.005%, 2.5ML RIGHTEYE SCH (23:30)
[2020-06-08 23:50] VITALS: BP 163/107
[2020-06-09] MEDS: INSULIN GLARGINE 100 UNITS/ML, PEN SQ-INSULIN SCH ×2 (00:02→21:16)
[2020-06-09 03:35] LABS: AMPHETAMINE SCREEN, URINE Negative (Negative); BARBITURATE SCREEN, URINE Negative (Negative); BENZODIAZEPINE SCREEN, URINE Negative (Negative); CANNABINOID SCREEN, URINE Negative (Negative); COCAINE SCREEN, URINE Negative (Negative); METHADONE SCREEN, URINE Negative (Negative); OPIATE SCREEN, URINE Positive (Negative)
[2020-06-09 03:47] LABS: BASOPHILS # (AUTO) 0.02 x10^3/uL (0-0.1); BASOPHILS % (AUTO) 0 % (0-1); EOSINOPHILS # (AUTO) 0.04 x10^3/uL (0-0.4); EOSINOPHILS % (AUTO) 1 % (1-7); LYMPHOCYTES % (AUTO) 16 % (22-44); MD NO; MEAN CORPUSCULAR HEMOGLOBIN 28.7 pg (27.5-34.5); MEAN CORPUSCULAR HGB CONC 33.5 g/dL (33.2-36.2); MEAN CORPUSCULAR VOLUME 85.6 fL (81-97); MEAN PLATELET VOLUME 8.1 fL (7.4-10.4); MONOCYTES % (AUTO) 5 % (2-9); NEUTROPHILS # (AUTO) 6.54 x10^3/uL (1.8-6.8); NEUTROPHILS % (AUTO) 79 % (42-75); PLATELET COUNT 332 x10^3/uL (130-400); RED CELL DISTRIBUTION WIDTH 15.6 % (9.4-14.8)
[2020-06-09 03:56] LABS: ANION GAP 7 mmol/L (5-15); CALCIUM 8.1 mg/dL (8.5-10.1); CHLORIDE 108 mmol/L (98-107); CHOLESTEROL, TOTAL 206 mg/dL (140-239); CREATININE 1.26 mg/dL (0.7-1.3)
[2020-06-09 03:58] LABS: CHOL/HDL RATIO 2.9; HDL CHOL % 35 % (26-37); HDL CHOLESTEROL (DIRECT) 72 mg/dL (40-60); LDL CHOLESTEROL,CALCULATED 115 mg/dL (54-169); LDL/HDL RATIO 1.6 (0.5-3.0); TRIGLYCERIDES 94 mg/dL (50-200); VLDL CHOLESTEROL 19 mg/dL (0-25)
[2020-06-09 04:48] VITALS: BP 175/116
[2020-06-09] MEDS: INSULIN LISPRO 100 UNITS/ML, PEN SQ-INSULIN SCH ×4 (07:00→20:54)
[2020-06-09 07:15] LABS: TROPONIN I < 0.015 ng/mL (0.000-0.045)
[2020-06-09] MEDS: METOPROLOL TARTRATE 25 MG TAB PO SCH ×2 (07:36→15:55)
[2020-06-09] MEDS: LISINOPRIL 40 MG TABLET PO SCH (08:15)
[2020-06-09] MEDS: TAMSULOSIN 0.4 MG CAP.ER.24H PO SCH (08:15)
[2020-06-09] MEDS: ASPIRIN 81 MG TABLET EC PO SCH (08:15)
[2020-06-09] MEDS ORDERED: DORZ1DRO7 EACHEYE (11:00)
[2020-06-09] MEDS ORDERED: BRIM5DRO4 EACHEYE (11:00)
[2020-06-09] MEDS: BRIMONIDINE TARTRATE OPHTH 0.15%, 5ML HOMEOPHTH SCH ×3 (11:05→20:53)
[2020-06-09] MEDS ORDERED: TIMOLOL MALEATE HOMEMISC SCH (11:09)
[2020-06-09] MEDS ORDERED: DORZOLAMIDE HOMEMISC SCH (11:09)
[2020-06-09 17:18] LABS: MICROSCOPIC AUTO
[2020-06-09] MEDS: TIMOLOL MALEATE HOMEOPHTH SCH (20:49)
[2020-06-09] MEDS: DORZOLAMIDE HOMEOPHTH SCH (20:49)
[2020-06-09] MEDS: LATANOPROST OPHTH 0.005%, 2.5ML HOMEOPHTH SCH (20:52)
[2020-06-09] MEDS: ATORVASTATIN 40 MG TABLET PO SCH (21:16)
[2020-06-09] MEDS: hydrALAzine 20 MG/ML, 1ML IV PRN (22:32)
[2020-06-10] MEDS: METOPROLOL TARTRATE 25 MG TAB PO SCH (00:10)
[2020-06-10 03:49] VITALS: BP 135/84
[2020-06-10 05:01] LABS: ANION GAP 6 mmol/L (5-15); CALCIUM 8.5 mg/dL (8.5-10.1); CHLORIDE 109 mmol/L (98-107)
[2020-06-10 05:03] LABS: CREATININE 1.36 mg/dL (0.7-1.3)
[2020-06-10] MEDS: hydrALAzine 20 MG/ML, 1ML IV PRN (05:11)
[2020-06-10] MEDS: ACETAMINOPHEN 325 MG TABLET PO PRN ×2 (05:24→13:18)
[2020-06-10] MEDS: INSULIN LISPRO 100 UNITS/ML, PEN SQ-INSULIN SCH ×4 (07:00→21:06)
[2020-06-10] MEDS: DORZOLAMIDE HOMEOPHTH SCH ×2 (07:20→20:42)
[2020-06-10] MEDS: BRIMONIDINE TARTRATE OPHTH 0.15%, 5ML HOMEOPHTH SCH ×3 (07:20→20:42)
[2020-06-10] MEDS: TIMOLOL MALEATE HOMEOPHTH SCH ×2 (07:20→20:42)
[2020-06-10] MEDS: ASPIRIN 81 MG TABLET EC PO SCH (07:20)
[2020-06-10] MEDS: LISINOPRIL 40 MG TABLET PO SCH (07:20)
[2020-06-10] MEDS: TAMSULOSIN 0.4 MG CAP.ER.24H PO SCH (07:20)
[2020-06-10] MEDS: METOCLOPRAMIDE 10MG TABLET PO SCH ×3 (11:27→20:41)
[2020-06-10] MEDS: METOPROLOL TARTRATE 50 MG TAB PO SCH ×2 (13:46→21:06)
[2020-06-10 17:37] VITALS: BP 137/87
[2020-06-10 18:51] VITALS: BP 140/80
[2020-06-10] MEDS: ATORVASTATIN 40 MG TABLET PO SCH (20:41)
[2020-06-10] MEDS: LATANOPROST OPHTH 0.005%, 2.5ML HOMEOPHTH SCH (20:42)
[2020-06-10] MEDS ORDERED: INSULIN GLARGINE 100 UNITS/ML, PEN SQ-INSULIN SCH (21:00)
[2020-06-11] VITALS: BP 149/86
[2020-06-11 00:28] VITALS: BP 149/86
[2020-06-11 04:00] VITALS: BP 136/83
[2020-06-11] MEDS: METOPROLOL TARTRATE 50 MG TAB PO SCH (05:42)
[2020-06-11 07:20] VITALS: BP 156/87
[2020-06-11] MEDS: ASPIRIN 81 MG TABLET EC PO SCH (08:05)
[2020-06-11] MEDS: TAMSULOSIN 0.4 MG CAP.ER.24H PO SCH (08:05)
[2020-06-11] MEDS: METOCLOPRAMIDE 10MG TABLET PO SCH ×2 (08:05→11:11)
[2020-06-11] MEDS: LISINOPRIL 40 MG TABLET PO SCH (08:05)
[2020-06-11] MEDS: INSULIN LISPRO 100 UNITS/ML, PEN SQ-INSULIN SCH ×2 (08:20→11:12)
[2020-06-11] MEDS: BRIMONIDINE TARTRATE OPHTH 0.15%, 5ML HOMEOPHTH SCH (08:20)
[2020-06-11] MEDS: DORZOLAMIDE HOMEOPHTH SCH (08:21)
[2020-06-11] MEDS: TIMOLOL MALEATE HOMEOPHTH SCH (08:21)
[2020-06-11] MEDS ORDERED: METO10TA2 PO (09:47)
[2020-06-11] MEDS ORDERED: HYDR-3343 PO (09:47)
[2020-06-11] MEDS ORDERED: METO50TA82 PO (09:47)
== END 2020-06-11 12:33 | disposition home or self-care (01) | DRG 305 ==
LOC: ED 20:00 → EDIP 20:22 → CCU 23:42 → 4WST 06-10 17:25
PROVIDERS: ADMIT Family Medicine; ATTEND Internal Medicine
DX: I16.1 Hypertensive emergency (principal); E44.1 Mild protein-calorie malnutrition; N17.9 Acute kidney failure, unspecified; D64.9 Anemia, unspecified; E11.22 Type 2 diabetes mellitus with diabetic chronic kidney disease; E11.43 Type 2 diabetes mellitus with diabetic autonomic (poly)neuropathy; E11.51 Type 2 diabetes mellitus with diabetic peripheral angiopathy without gangrene; E11.65 Type 2 diabetes mellitus with hyperglycemia; H40.9 Unspecified glaucoma; I12.9 Hypertensive chronic kidney disease with stage 1 through stage 4 chronic kidney disease, or unspecified chronic kidney disease; K31.84 Gastroparesis; N18.3 Chronic kidney disease, stage 3 (moderate); Z83.3 Family history of diabetes mellitus; Z89.411 Acquired absence of right great toe; Z68.24 Body mass index [BMI] 24.0-24.9, adult
CPT/HCPCS: 36415; 70450; 70496; 70498; 80048; 80053; 80061; 80307; 81001; 82728; 82962; 83036; 83540; 83550; 84443; 84484; 85025; 85610; 85730; 87081; 93005; 93306; G0378; J2405; Q9967; J0360; J1815; J2270; J7050

== ENCOUNTER 2020-06-16 11:15 | Emergency (ER) | payer MEDICAID ==
[~2020-06-16] VITALS: Ht 175.3 cm; Wt 77.3 kg
[~2020-06-16 11:15] MED LIST changes: +ASPI-515 PO; +BRIM5DRO4 EACHEYE; +DORZ1DRO7 EACHEYE; +LATA2.5D3 RIGHTEYE; +METO10TA2 PO; +METO50TA82 PO; +PROM25TA10 PO; +[UNRECOGNIZED DRUG - OTHER] OP
[2020-06-16] MEDS ORDERED: ONDANSETRON ODT 4 MG ONE (12:28)
--- NOTE | 2020-06-16 12:29 | NUR ---
PT IN BED, ATTACHED TO MONITORS. DENIES ANY FURTHER NEEDS OR CONCERNS AT THIS TIME, CALL LIGHT IN REACH.
[2020-06-16] MEDS ORDERED: ONDANSETRON ODT 4 MG PO ONE (12:30)
[2020-06-16 12:39] LABS: BASOPHILS # (AUTO) 0.03 x10^3/uL (0-0.1); BASOPHILS % (AUTO) 1 % (0-1); EOSINOPHILS # (AUTO) 0.13 x10^3/uL (0-0.4); EOSINOPHILS % (AUTO) 2 % (1-7); LYMPHOCYTES # (AUTO) 1.08 x10^3/uL (1-3.4); LYMPHOCYTES % (AUTO) 17 % (22-44); MD NO; MEAN CORPUSCULAR HEMOGLOBIN 28.3 pg (27.5-34.5); MEAN CORPUSCULAR HGB CONC 32.5 g/dL (33.2-36.2); MEAN PLATELET VOLUME 7.9 fL (7.4-10.4); MONOCYTES # (AUTO) 0.31 x10^3/uL (0.2-0.8); MONOCYTES % (AUTO) 5 % (2-9); NEUTROPHILS # (AUTO) 4.63 x10^3/uL (1.8-6.8); NEUTROPHILS % (AUTO) 75 % (42-75); PLATELET COUNT 305 x10^3/uL (130-400); RED BLOOD COUNT 3.97 x10^6/uL (4.38-5.82); RED CELL DISTRIBUTION WIDTH 15.6 % (9.4-14.8)
[2020-06-16 12:44] LABS: ALBUMIN 2.5 g/dL (3.4-5.0); ANION GAP 4 mmol/L (5-15); CALCIUM 8.2 mg/dL (8.5-10.1); CHLORIDE 110 mmol/L (98-107); CREATININE 1.37 mg/dL (0.7-1.3)
[2020-06-16 12:48] LABS: TROPONIN I < 0.015 ng/mL (0.000-0.045)
[2020-06-16] MEDS ORDERED: KETOROLAC 30 MG/1 ML IVPush ONE (13:00)
[2020-06-16] MEDS ORDERED: KETOROLAC 30 MG/1 ML ONE (13:03)
[2020-06-16] MEDS ORDERED: KETOROLAC 30 MG/1 ML IM ONE (13:30)
[2020-06-16 14:31] VITALS: BP 160/105
== END 2020-06-16 16:07 | disposition home or self-care (01) ==
LOC: ED 11:43
DX: I10 Essential (primary) hypertension (principal); R51 Headache; E11.65 Type 2 diabetes mellitus with hyperglycemia
CPT/HCPCS: 36415; 70450; 80048; 82040; 83880; 84484; 85025; 93005; 96372; 99285; J1885; Q0162

== ENCOUNTER 2020-07-13 15:15 | Inpatient (IN) | payer MEDICAID ==
[~2020-07-13] VITALS: Ht 175.3 cm; Wt 75.4 kg
--- NOTE | 2020-07-13 15:29 | NUR ---
PT BIB BY FAMILY. PT C/O HEADACHE, HIGH BP, AND PAINFUL, SWOLLEN RIGHT EYE. NO TRAUMA TO THE EYE OR HEAD PER PT. 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 PT STATES HE HAS EXPERIENCED HEADACHES, EYES ISSUES, AND HTN SINCE APRIL, UNKNOWN CAUSE.
[2020-07-13] MEDS ORDERED: hydrALAzine 20 MG/ML, 1ML IV ONE (16:30)
--- NOTE | 2020-07-13 16:33 | NUR ---
BEDSIDE BLOOD GLUCOSE:106
[2020-07-13] MEDS ORDERED: ENALAPRILAT 1.25 MG/ML, 1ML ONE (16:53)
[2020-07-13] MEDS ORDERED: ENALAPRILAT 1.25 MG/ML, 2ML IV ONE (17:00)
[2020-07-13] MEDS ORDERED: KETOROLAC 30 MG/1 ML IVPush ONE (17:30)
[2020-07-13] MEDS ORDERED: PROPARACAINE OPHTH 0.5%, 15ML EACHEYE ONE (17:30)
[2020-07-13] MEDS ORDERED: KETOROLAC 30 MG/1 ML ONE (17:36)
[2020-07-13] MEDS ORDERED: PROPARACAINE OPHTH 0.5%, 15ML ONE (17:37)
[2020-07-13] MEDS ORDERED: ONDANSETRON 2MG/ML, 2ML ONE (17:41)
--- NOTE | 2020-07-13 17:53 | NUR ---
TONOMETER READING LEFT EYE 20.95, RIGHT EYE OR ERR >55, PER PROVIDER. NICARDIPINE DRIP STARTED. MEDICATED FOR PAIN AND NAUSEA PER MAR.
--- NOTE | 2020-07-13 18:10 | NUR ---
DOMESTIC MAID BEDSIDE
--- NOTE | 2020-07-13 18:22 | NUR ---
DR ARMSTRONG AWARE OF CURRENT BP ON LOWEST DOSE NICARDIPEM
[2020-07-13] MEDS ORDERED: ONDANSETRON 2MG/ML, 2ML IVPush ONE (18:30)
--- NOTE | 2020-07-13 18:35 | NUR ---
PT PROVIDED SNACKS AFTER OK FROM . CONTINUE TO MONITOR. NICARDIPEME DRIP AT 5 MG/HR
--- NOTE | 2020-07-13 18:42 | NUR ---
PER DR ARMSTRONG NICARDEPEME DRIP TO BE TURNED OF AND CLONDINE STARTED. DRIP DISCONTINUED AT THIS TIME.
--- NOTE | 2020-07-13 18:52 | NUR ---
HAND OFF GIVEN TO CHAMP.
--- NOTE | 2020-07-13 18:54 | NUR ---
REPORT RECIEVED FROM ROBERT RN. ALL SAFETY MEASURES IN PLACE, TALKED TO PATIENT ABOUT POC, NO NEEDS AT THIS TIME.
[2020-07-13] MEDS ORDERED: LISINOPRIL 20 MG TABLET ONE (18:57)
[2020-07-13] MEDS ORDERED: METOPROLOL TARTRATE 50 MG TAB ONE (18:57)
[2020-07-13] MEDS ORDERED: hydrALAzine 20 MG/ML, 1ML IVPush PRN (19:00)
[2020-07-13] MEDS: METOPROLOL TARTRATE 50 MG TAB PO SCH (19:00)
[2020-07-13] MEDS ORDERED: TIMOLOL OPHTH 0.5%, 5ML RIGHTEYE SCH (19:00)
[2020-07-13] MEDS ORDERED: KETOROLAC 30 MG/1 ML IV PRN (19:00)
[2020-07-13] MEDS ORDERED: ACETAMINOPHEN 325 MG TABLET PO PRN (19:00)
[2020-07-13] MEDS ORDERED: morphine SULFATE 10 MG/ML, 1ML IVPush PRN (19:00)
[2020-07-13] MEDS ORDERED: DOCUSATE 100 MG CAPSULE PO PRN (19:00)
[2020-07-13] MEDS ORDERED: LISINOPRIL 20 MG TABLET PO SCH (19:00)
[2020-07-13] MEDS ORDERED: ONDANSETRON 2MG/ML, 2ML IVPush PRN (19:00)
--- NOTE | 2020-07-13 20:05 | NUR ---
CALLED PHARMACY ABOUT EYEDROPS, AND PHARMACIST STATES SHE WILL CALL DOC TO CLARIFY
[2020-07-13] MEDS: BRIMONIDINE TARTRATE OPHTH 0.15%, 5ML RIGHTEYE SCH ×2 (20:32→21:02)
[2020-07-13] MEDS: TIMOLOL OPHTH 0.5%, 5ML RIGHTEYE SCH ×3 (20:39→23:41)
--- NOTE | 2020-07-13 20:44 | NUR ---
REPORT GIVEN TO GAGE LAWSON. ALL QUESTIONS ANSWERED
[2020-07-13] MEDS: DORZOLAMIDE OPHTH 2%, 10ML RIGHTEYE SCH ×3 (20:47→23:56)
[2020-07-13] MEDS ORDERED: INSULIN REGULAR 100 UNITS/ML, 3ML VIAL SQ-INSULIN SCH (21:00)
--- NOTE | 2020-07-13 21:14 | NUR ---
2 ND ROUND OF EYE DROPS GIVEN. PT RESTING. BP IMPROVED. CALL LIGHT IN REACH
[2020-07-13 22:01] VITALS: BP 115/77
[2020-07-13] MEDS: HEPARIN 5,000 UNITS/ML, 1ML SQ SCH (23:50)
[2020-07-13] MEDS: INSULIN GLARGINE 100 UNITS/ML, PEN SQ-INSULIN SCH (23:53)
[2020-07-14] MEDS: BRIMONIDINE TARTRATE OPHTH 0.15%, 5ML RIGHTEYE SCH (00:01)
[2020-07-14 00:36] VITALS: BP 144/91
[2020-07-14] MEDS: METOPROLOL TARTRATE 50 MG TAB PO SCH (03:21)
[2020-07-14] MEDS: ASPIRIN 81 MG TABLET EC PO SCH (05:53)
[2020-07-14 06:22] LABS: BASOPHILS # (AUTO) 0.03 x10^3/uL (0-0.1); BASOPHILS % (AUTO) 1 % (0-1); EOSINOPHILS # (AUTO) 0.12 x10^3/uL (0-0.4); EOSINOPHILS % (AUTO) 2 % (1-7); LYMPHOCYTES # (AUTO) 1.61 x10^3/uL (1-3.4); LYMPHOCYTES % (AUTO) 30 % (22-44); MD NO; MEAN CORPUSCULAR HEMOGLOBIN 28.5 pg (27.5-34.5); MEAN CORPUSCULAR HGB CONC 32.5 g/dL (33.2-36.2); MEAN CORPUSCULAR VOLUME 87.4 fL (81-97); MEAN PLATELET VOLUME 8.5 fL (7.4-10.4); MONOCYTES # (AUTO) 0.34 x10^3/uL (0.2-0.8); MONOCYTES % (AUTO) 6 % (2-9); NEUTROPHILS # (AUTO) 3.26 x10^3/uL (1.8-6.8); NEUTROPHILS % (AUTO) 61 % (42-75); PLATELET COUNT 250 x10^3/uL (130-400); RED BLOOD COUNT 3.89 x10^6/uL (4.38-5.82); RED CELL DISTRIBUTION WIDTH 14.9 % (9.4-14.8)
[2020-07-14 06:34] LABS: ANION GAP 4 mmol/L (5-15); CALCIUM 8.5 mg/dL (8.5-10.1); CHLORIDE 108 mmol/L (98-107); CREATININE 1.55 mg/dL (0.7-1.3)
[2020-07-14 06:57] VITALS: BP 144/97
[2020-07-14] MEDS: DORZOLAMIDE OPHTH 2%, 10ML EACHEYE SCH ×3 (09:00→20:59)
[2020-07-14] MEDS: TIMOLOL OPHTH 0.5%, 5ML EACHEYE SCH ×2 (09:00→21:00)
[2020-07-14] MEDS: BRIMONIDINE TARTRATE OPHTH 0.15%, 5ML EACHEYE SCH ×3 (09:00→20:59)
[2020-07-14] MEDS: HEPARIN 5,000 UNITS/ML, 1ML SQ SCH ×2 (09:31→17:13)
[2020-07-14] MEDS: LISINOPRIL 40 MG TABLET PO SCH (09:32)
[2020-07-14] MEDS: TAMSULOSIN 0.4 MG CAP.ER.24H PO SCH (09:32)
[2020-07-14] MEDS: CARVEDILOL 12.5 MG TABLET PO SCH ×2 (09:32→16:33)
[2020-07-14] MEDS ORDERED: MORPHINE SULFATE 4 MG/ML, 1ML IVPush PRN (10:00)
[2020-07-14] MEDS: INSULIN LISPRO 100 UNITS/ML, PEN SQ-INSULIN SCH ×3 (10:15→20:57)
[2020-07-14 12:41] VITALS: BP 123/75
[2020-07-14 18:53] VITALS: BP 118/71
[2020-07-14] MEDS: INSULIN GLARGINE 100 UNITS/ML, PEN SQ-INSULIN SCH (20:56)
[2020-07-15] VITALS (11 sets, daily range): BP systolic 104–194; BP diastolic 62–108
[2020-07-15] MEDS: HEPARIN 5,000 UNITS/ML, 1ML SQ SCH ×3 (01:21→16:31)
[2020-07-15] MEDS: ACETAMINOPHEN 325 MG TABLET PO PRN ×3 (01:25→18:04)
[2020-07-15] MEDS: CARVEDILOL 12.5 MG TABLET PO SCH ×2 (05:31→18:05)
[2020-07-15] MEDS: ASPIRIN 81 MG TABLET EC PO SCH (05:31)
[2020-07-15 05:40] LABS: BASOPHILS # (AUTO) 0.03 x10^3/uL (0-0.1); BASOPHILS % (AUTO) 1 % (0-1); EOSINOPHILS # (AUTO) 0.14 x10^3/uL (0-0.4); EOSINOPHILS % (AUTO) 3 % (1-7); LYMPHOCYTES # (AUTO) 1.84 x10^3/uL (1-3.4); LYMPHOCYTES % (AUTO) 33 % (22-44); MD NO; MEAN CORPUSCULAR HEMOGLOBIN 28.7 pg (27.5-34.5); MEAN CORPUSCULAR HGB CONC 33.3 g/dL (33.2-36.2); MEAN CORPUSCULAR VOLUME 86.1 fL (81-97); MEAN PLATELET VOLUME 7.9 fL (7.4-10.4); MONOCYTES # (AUTO) 0.32 x10^3/uL (0.2-0.8); MONOCYTES % (AUTO) 6 % (2-9); NEUTROPHILS # (AUTO) 3.27 x10^3/uL (1.8-6.8); NEUTROPHILS % (AUTO) 58 % (42-75); PLATELET COUNT 269 x10^3/uL (130-400); RED BLOOD COUNT 4.07 x10^6/uL (4.38-5.82); RED CELL DISTRIBUTION WIDTH 14.7 % (9.4-14.8)
[2020-07-15 05:53] LABS: ANION GAP 4 mmol/L (5-15); CALCIUM 8.8 mg/dL (8.5-10.1); CHLORIDE 109 mmol/L (98-107); CREATININE 1.46 mg/dL (0.7-1.3)
[2020-07-15] MEDS ORDERED: LABETALOL 5MG/ML, 20ML IVPush PRN (06:00)
[2020-07-15] MEDS: INSULIN LISPRO 100 UNITS/ML, PEN SQ-INSULIN SCH ×4 (06:45→22:01)
[2020-07-15] MEDS: LISINOPRIL 40 MG TABLET PO SCH (08:10)
[2020-07-15] MEDS: TAMSULOSIN 0.4 MG CAP.ER.24H PO SCH (08:10)
[2020-07-15] MEDS: TIMOLOL OPHTH 0.5%, 5ML EACHEYE SCH ×2 (08:11→22:02)
[2020-07-15] MEDS: DORZOLAMIDE OPHTH 2%, 10ML EACHEYE SCH ×3 (08:47→22:01)
[2020-07-15] MEDS: BRIMONIDINE TARTRATE OPHTH 0.15%, 5ML EACHEYE SCH ×3 (09:35→22:02)
[2020-07-15] MEDS: ISOSORBIDE DINITRATE 10 MG TABLET PO SCH ×3 (10:50→21:59)
[2020-07-15] MEDS ORDERED: INSULIN GLARGINE 100 UNITS/ML, PEN SQ-INSULIN SCH (21:00)
[2020-07-16 00:41] VITALS: BP 138/88
[2020-07-16] MEDS: HEPARIN 5,000 UNITS/ML, 1ML SQ SCH ×2 (00:44→08:57)
[2020-07-16 06:01] VITALS: BP 138/80
[2020-07-16] MEDS: ASPIRIN 81 MG TABLET EC PO SCH (06:02)
[2020-07-16] MEDS: CARVEDILOL 12.5 MG TABLET PO SCH (06:02)
[2020-07-16] MEDS: ISOSORBIDE DINITRATE 10 MG TABLET PO SCH (08:18)
[2020-07-16] MEDS: LISINOPRIL 40 MG TABLET PO SCH (08:18)
[2020-07-16] MEDS: TAMSULOSIN 0.4 MG CAP.ER.24H PO SCH (08:18)
[2020-07-16] MEDS: INSULIN LISPRO 100 UNITS/ML, PEN SQ-INSULIN SCH ×2 (08:19→11:00)
[2020-07-16 08:20] VITALS: BP 142/87
[2020-07-16] MEDS: BRIMONIDINE TARTRATE OPHTH 0.15%, 5ML EACHEYE SCH (08:22)
[2020-07-16] MEDS: TIMOLOL OPHTH 0.5%, 5ML EACHEYE SCH (08:57)
[2020-07-16] MEDS: DORZOLAMIDE OPHTH 2%, 10ML EACHEYE SCH (09:20)
[2020-07-16] MEDS ORDERED: INSU100I13 SQ-INSULIN (09:29)
[2020-07-16] MEDS ORDERED: TIMO5DRO5 EACHEYE (09:29)
[2020-07-16] MEDS ORDERED: CARV12.52 PO (09:29)
[2020-07-16] MEDS ORDERED: ISOS10TA2 PO (09:29)
[2020-07-16 11:16] VITALS: BP 120/79
[2020-07-16] MEDS: ACETAMINOPHEN 325 MG TABLET PO PRN (11:20)
[2020-07-16] MEDS ORDERED: INSULIN GLARGINE 100 UNITS/ML, PEN SQ-INSULIN SCH (21:00)
== END 2020-07-16 12:32 | disposition home or self-care (01) | DRG 683 ==
LOC: ED 16:40 → EDIP 18:21 → 4WST 21:41 → DCLOUNGE 07-16 12:30
PROVIDERS: ADMIT Family Medicine; ATTEND Internal Medicine
DX: I12.9 Hypertensive chronic kidney disease with stage 1 through stage 4 chronic kidney disease, or unspecified chronic kidney disease (principal); N17.9 Acute kidney failure, unspecified; I16.0 Hypertensive urgency; D64.9 Anemia, unspecified; E11.22 Type 2 diabetes mellitus with diabetic chronic kidney disease; E11.65 Type 2 diabetes mellitus with hyperglycemia; E78.5 Hyperlipidemia, unspecified; G47.00 Insomnia, unspecified; H40.51X0 Glaucoma secondary to other eye disorders, right eye, stage unspecified; N18.3 Chronic kidney disease, stage 3 (moderate); N40.0 Benign prostatic hyperplasia without lower urinary tract symptoms; R29.810 Facial weakness; Z79.4 Long term (current) use of insulin
CPT/HCPCS: 36415; 70450; 80048; 82962; 83036; 85025; 96374; 96375; G0378; J1644; J1815; J1885; J2405; J0360; J7050

== ENCOUNTER 2020-12-14 06:28 | Inpatient (IN) | payer MEDICAID ==
[~2020-12-14] VITALS: Ht 175.3 cm; Wt 82.1 kg
[~2020-12-14 06:28] MED LIST changes: +AMLO-211 PO; -AMLO10TA8 PO; -ASPI-515 PO; +ASPI-963 PO; -LATA2.5D3 RIGHTEYE; +LATA2.5D4 RIGHTEYE; +TIMO5DRO5 EACHEYE
[2020-12-14] MEDS ORDERED: LABETALOL 5MG/ML, 20ML ONE (06:47)
--- NOTE | 2020-12-14 06:53 | NUR ---
md at bedside for assessment and to discuss plan of care
--- NOTE | 2020-12-14 06:59 | NUR ---
PT COMES TODAY C/O BILATERAL LE SWELLING "FEELS LIKE WHEN I WALK I HAVE WATER ON TOP OF IT". PT STATES HX OF DMII. PT HYPERTENSIVE ON ASSESSMENT. EKG COMPLETE. IV ACCESS OBTAINED. LABS COLLECTED. ORDERED MEDICATION ADMINISTERED. MONITORS CONNECTED. CALL LIGHT W/IN REACH
[2020-12-14] MEDS ORDERED: LABETALOL 5MG/ML, 20ML IVPush ONE ×2 (07:00→08:00)
[2020-12-14] MEDS ORDERED: SODIUM CHLORIDE FLUSH 10ML SYR IVF ONE (07:00)
[2020-12-14 07:13] LABS: ALANINE AMINOTRANSFERASE 21 U/L (12-78); ANION GAP 8 mmol/L (5-15); CALCIUM 8.3 mg/dL (8.5-10.1); CHLORIDE 115 mmol/L (98-107); CREATININE 2.91 mg/dL (0.7-1.3)
[2020-12-14 07:16] LABS: BASOPHILS % (AUTO) 1 % (0-1); EOSINOPHILS % (AUTO) 7 % (1-7); LYMPHOCYTES % (AUTO) 18 % (22-44); MEAN CORPUSCULAR HEMOGLOBIN 28.6 pg (27.5-34.5); MEAN CORPUSCULAR HGB CONC 33.7 g/dL (33.2-36.2); MEAN PLATELET VOLUME 8.2 fL (7.4-10.4); MONOCYTES % (AUTO) 5 % (2-9); NEUTROPHILS % (AUTO) 70 % (42-75); PLATELET COUNT 343 x10^3/uL (130-400); RED CELL DISTRIBUTION WIDTH 15.6 % (9.4-14.8)
[2020-12-14 07:18] LABS: ALKALINE PHOSPHATASE 115 U/L (45-117); BILIRUBIN,TOTAL 0.3 mg/dL (0.2-1.0); TOTAL PROTEIN 6.3 g/dL (6.4-8.2); TROPONIN I 0.025 ng/mL (0.000-0.045)
--- NOTE | 2020-12-14 07:30 | NUR ---
MD AT BEDSIDE TO DISCUSS RESULTS AND ADMISSION TO HOSPITAL. QUESTIONS ANSWERED.
[2020-12-14 07:34] LABS: MD NO
--- NOTE | 2020-12-14 09:00 | NUR ---
REPORT GIVEN TO JOHN ALMONTE
--- NOTE | 2020-12-14 09:28 | NUR ---
PT SITTING UP ON GURNEY EATING. SIGNIFICANT OTHER AT BEDSIDE. NAD. CALL LIGHT W/IN REACH
[2020-12-14 09:39] VITALS: BP 172/111
[2020-12-14] MEDS ORDERED: LABETALOL 5MG/ML, 20ML IVPush PRN (12:00)
[2020-12-14] MEDS ORDERED: ONDANSETRON 2MG/ML, 2ML IVPush PRN (12:00)
[2020-12-14] MEDS ORDERED: ONDANSETRON ODT 4 MG PO PRN (12:00)
[2020-12-14 12:24] VITALS: BP 179/112
[2020-12-14] MEDS: hydrALAzine 20 MG/ML, 1ML IV PRN (12:34)
[2020-12-14] MEDS: HEPARIN 5,000 UNITS/ML, 1ML SQ SCH ×2 (12:35→21:10)
[2020-12-14 12:46] LABS: TROPONIN I 0.023 ng/mL (0.000-0.045)
[2020-12-14 14:14] VITALS: BP 160/99
[2020-12-14 14:43] LABS: MICROSCOPIC AUTO
[2020-12-14 14:53] LABS: AMPHETAMINE SCREEN, URINE Negative (Negative); BARBITURATE SCREEN, URINE Negative (Negative); BENZODIAZEPINE SCREEN, URINE Negative (Negative); CANNABINOID SCREEN, URINE Negative (Negative); COCAINE SCREEN, URINE Negative (Negative); METHADONE SCREEN, URINE Negative (Negative); OPIATE SCREEN, URINE Negative (Negative)
[2020-12-14] MEDS ORDERED: FUROSEMIDE 20 MG/2 ML IV SCH (17:00)
[2020-12-14 17:43] VITALS: BP 177/110
[2020-12-14] MEDS ORDERED: CARVEDILOL 6.25 MG TABLET PO SCH (18:00)
[2020-12-14 18:45] LABS: TROPONIN I 0.024 ng/mL (0.000-0.045)
[2020-12-14 19:55] VITALS: BP 149/100
[2020-12-14] MEDS: INSULIN GLARGINE 100 UNITS/ML, PEN SQ-INSULIN SCH (21:11)
[2020-12-14 23:46] VITALS: BP 188/126
[2020-12-14] MEDS ORDERED: ACETAMINOPHEN 325 MG TABLET ONE (23:56)
[2020-12-15] MEDS: ACETAMINOPHEN 325 MG TABLET PO PRN
[2020-12-15] MEDS: hydrALAzine 20 MG/ML, 1ML IV PRN (00:03)
[2020-12-15 00:47] VITALS: BP 164/89
[2020-12-15] MEDS: HEPARIN 5,000 UNITS/ML, 1ML SQ SCH ×3 (04:35→20:00)
[2020-12-15 04:51] LABS: BASOPHILS % (AUTO) 1 % (0-1); EOSINOPHILS % (AUTO) 6 % (1-7); LYMPHOCYTES % (AUTO) 25 % (22-44); MEAN CORPUSCULAR HEMOGLOBIN 28.6 pg (27.5-34.5); MEAN CORPUSCULAR HGB CONC 34.1 g/dL (33.2-36.2); MEAN PLATELET VOLUME 8.1 fL (7.4-10.4); MONOCYTES % (AUTO) 6 % (2-9); NEUTROPHILS % (AUTO) 62 % (42-75); PLATELET COUNT 281 x10^3/uL (130-400); RED CELL DISTRIBUTION WIDTH 15.8 % (9.4-14.8)
[2020-12-15 04:52] LABS: MD NO
[2020-12-15 05:02] LABS: ALBUMIN 1.7 g/dL (3.4-5.0); ANION GAP 11 mmol/L (5-15); CALCIUM 8.2 mg/dL (8.5-10.1); CHLORIDE 114 mmol/L (98-107)
[2020-12-15 05:14] LABS: ALANINE AMINOTRANSFERASE 18 U/L (12-78); ALKALINE PHOSPHATASE 90 U/L (45-117); BILIRUBIN,TOTAL 0.4 mg/dL (0.2-1.0); CHOL/HDL RATIO 5.4; CHOLESTEROL, TOTAL 286 mg/dL (140-239); CREATININE 2.77 mg/dL (0.7-1.3); HDL CHOL % 19 % (26-37); HDL CHOLESTEROL (DIRECT) 53 mg/dL (40-60); LDL CHOLESTEROL,CALCULATED 201 mg/dL (54-169); LDL/HDL RATIO 3.8 (0.5-3.0); TOTAL PROTEIN 5.2 g/dL (6.4-8.2); TRIGLYCERIDES 158 mg/dL (50-200); VLDL CHOLESTEROL 32 mg/dL (0-25)
[2020-12-15 07:45] VITALS: BP 163/105
[2020-12-15] MEDS ORDERED: POTASSIUM CHLORIDE 20 MEQ TAB.ER.PRT PO SCH (08:00)
[2020-12-15] MEDS ORDERED: REGADENOSON 0.4 MG/5 ML SYRINGE ONE (08:26)
[2020-12-15 09:36] VITALS: BP 191/119
[2020-12-15] MEDS: TAMSULOSIN 0.4 MG CAP.ER.24H PO SCH (09:44)
[2020-12-15] MEDS: ASPIRIN 81 MG TABLET EC PO SCH (09:44)
[2020-12-15] MEDS: FUROSEMIDE 40 MG/4 ML IV SCH ×2 (09:44→17:17)
[2020-12-15 10:24] VITALS: BP 152/94
[2020-12-15 13:07] VITALS: BP 141/85
[2020-12-15] MEDS: CARVEDILOL 25 MG TABLET PO SCH (17:18)
[2020-12-15] MEDS ORDERED: CARVEDILOL 12.5 MG TABLET PO SCH (18:00)
[2020-12-15] MEDS: POTASSIUM CHLORIDE 20 MEQ TAB.ER.PRT PO SCH (20:46)
[2020-12-15] MEDS: ATORVASTATIN 40 MG TABLET PO SCH (20:46)
[2020-12-15 20:51] VITALS: BP 117/72
[2020-12-15] MEDS: INSULIN GLARGINE 100 UNITS/ML, PEN SQ-INSULIN SCH (22:55)
[2020-12-16 01:19] VITALS: BP 113/74
[2020-12-16] MEDS: HEPARIN 5,000 UNITS/ML, 1ML SQ SCH ×3 (05:05→21:19)
[2020-12-16] MEDS: CARVEDILOL 25 MG TABLET PO SCH ×2 (05:06→17:41)
[2020-12-16] MEDS: ASPIRIN 81 MG TABLET EC PO SCH (05:06)
[2020-12-16 05:57] LABS: BASOPHILS % (AUTO) 1 % (0-1); EOSINOPHILS % (AUTO) 9 % (1-7); LYMPHOCYTES % (AUTO) 33 % (22-44); MEAN CORPUSCULAR HEMOGLOBIN 28.9 pg (27.5-34.5); MEAN CORPUSCULAR HGB CONC 33.7 g/dL (33.2-36.2); MEAN PLATELET VOLUME 8.1 fL (7.4-10.4); MONOCYTES % (AUTO) 7 % (2-9); NEUTROPHILS % (AUTO) 50 % (42-75); PLATELET COUNT 287 x10^3/uL (130-400); RED BLOOD COUNT 3.86 x10^6/uL (4.38-5.82); RED CELL DISTRIBUTION WIDTH 15.4 % (9.4-14.8)
[2020-12-16 06:13] LABS: MD NO
[2020-12-16 06:22] LABS: ANION GAP 8 mmol/L (5-15); CALCIUM 8.2 mg/dL (8.5-10.1); CHLORIDE 114 mmol/L (98-107); CREATININE 3.45 mg/dL (0.7-1.3)
[2020-12-16 09:00] VITALS: BP 123/80
[2020-12-16] MEDS: TAMSULOSIN 0.4 MG CAP.ER.24H PO SCH (09:16)
[2020-12-16] MEDS: POTASSIUM CHLORIDE 20 MEQ TAB.ER.PRT PO SCH ×2 (09:16→21:20)
[2020-12-16 12:08] VITALS: BP 134/89
[2020-12-16 20:03] VITALS: BP 122/78
[2020-12-16] MEDS: INSULIN GLARGINE 100 UNITS/ML, PEN SQ-INSULIN SCH (21:15)
[2020-12-16] MEDS: ATORVASTATIN 40 MG TABLET PO SCH (21:20)
[2020-12-16] MEDS: FUROSEMIDE 40 MG/4 ML IV SCH (21:20)
[2020-12-17 01:39] VITALS: BP 144/87
[2020-12-17] MEDS: HEPARIN 5,000 UNITS/ML, 1ML SQ SCH ×3 (05:44→20:49)
[2020-12-17] MEDS: CARVEDILOL 25 MG TABLET PO SCH ×2 (05:45→17:27)
[2020-12-17] MEDS: ASPIRIN 81 MG TABLET EC PO SCH (05:45)
[2020-12-17 06:02] LABS: ANION GAP 4 mmol/L (5-15); CALCIUM 8.1 mg/dL (8.5-10.1); CHLORIDE 111 mmol/L (98-107); CREATININE 3.52 mg/dL (0.7-1.3)
[2020-12-17 07:45] VITALS: BP 122/80
[2020-12-17] MEDS: POTASSIUM CHLORIDE 20 MEQ TAB.ER.PRT PO SCH ×2 (07:53→20:49)
[2020-12-17] MEDS: TAMSULOSIN 0.4 MG CAP.ER.24H PO SCH (07:53)
[2020-12-17] MEDS: FUROSEMIDE 40 MG/4 ML IV SCH ×2 (07:54→20:50)
[2020-12-17] MEDS: ACETAMINOPHEN 325 MG TABLET PO PRN (11:54)
[2020-12-17 12:59] VITALS: BP 119/77
[2020-12-17 17:35] VITALS: BP 133/83
[2020-12-17 18:32] VITALS: BP 121/77
[2020-12-17] MEDS: ATORVASTATIN 40 MG TABLET PO SCH (20:49)
[2020-12-17] MEDS: TIMOLOL OPHTH 0.25%, 5ML RIGHTEYE SCH (21:00)
[2020-12-17] MEDS: INSULIN GLARGINE 100 UNITS/ML, PEN SQ-INSULIN SCH (21:00)
[2020-12-18 00:55] VITALS: BP 116/85
[2020-12-18 05:24] VITALS: BP 145/88
[2020-12-18] MEDS: ASPIRIN 81 MG TABLET EC PO SCH (05:27)
[2020-12-18] MEDS: CARVEDILOL 25 MG TABLET PO SCH ×2 (05:27→18:06)
[2020-12-18] MEDS: HEPARIN 5,000 UNITS/ML, 1ML SQ SCH ×3 (05:28→20:31)
[2020-12-18 06:03] LABS: ANION GAP 9 mmol/L (5-15); CALCIUM 8.1 mg/dL (8.5-10.1); CHLORIDE 108 mmol/L (98-107); CREATININE 3.47 mg/dL (0.7-1.3)
[2020-12-18 06:56] VITALS: BP 124/85
[2020-12-18] MEDS: TAMSULOSIN 0.4 MG CAP.ER.24H PO SCH (09:28)
[2020-12-18] MEDS: POTASSIUM CHLORIDE 20 MEQ TAB.ER.PRT PO SCH ×2 (09:28→20:30)
[2020-12-18] MEDS: FUROSEMIDE 40 MG/4 ML IV SCH ×2 (09:29→20:33)
[2020-12-18] MEDS: TIMOLOL OPHTH 0.25%, 5ML RIGHTEYE SCH ×2 (10:49→20:45)
[2020-12-18 11:48] LABS: HCT (SEDRATE) 29.8 % (39.2-51.8)
[2020-12-18 12:28] VITALS: BP 119/77
[2020-12-18 16:08] LABS: CREATININE,URINE RANDOM 31.8 mg/dL
[2020-12-18 20:03] VITALS: BP 118/83
[2020-12-18] MEDS: INSULIN GLARGINE 100 UNITS/ML, PEN SQ-INSULIN SCH (20:29)
[2020-12-18] MEDS: ATORVASTATIN 40 MG TABLET PO SCH (20:30)
[2020-12-19 01:01] VITALS: BP 100/63
[2020-12-19 05:11] VITALS: BP 125/82
[2020-12-19] MEDS: ASPIRIN 81 MG TABLET EC PO SCH (05:11)
[2020-12-19] MEDS: CARVEDILOL 25 MG TABLET PO SCH ×2 (05:12→18:26)
[2020-12-19] MEDS: HEPARIN 5,000 UNITS/ML, 1ML SQ SCH ×3 (05:12→20:29)
[2020-12-19 05:37] LABS: ANION GAP 7 mmol/L (5-15); CALCIUM 8.5 mg/dL (8.5-10.1); CHLORIDE 108 mmol/L (98-107)
[2020-12-19 05:38] LABS: CREATININE 4.04 mg/dL (0.7-1.3)
[2020-12-19 06:43] VITALS: BP 101/65
[2020-12-19] MEDS: TIMOLOL OPHTH 0.25%, 5ML RIGHTEYE SCH ×2 (09:41→21:00)
[2020-12-19] MEDS: POTASSIUM CHLORIDE 20 MEQ TAB.ER.PRT PO SCH ×2 (09:42→20:28)
[2020-12-19] MEDS: TAMSULOSIN 0.4 MG CAP.ER.24H PO SCH (09:42)
[2020-12-19] MEDS: FUROSEMIDE 40 MG/4 ML IV SCH (09:43)
[2020-12-19 13:51] VITALS: BP 106/71
[2020-12-19 17:19] LABS: ANA SCREEN NEGATIVE (Negative)
[2020-12-19 19:33] VITALS: BP 107/66
[2020-12-19] MEDS: INSULIN GLARGINE 100 UNITS/ML, PEN SQ-INSULIN SCH (20:29)
[2020-12-19] MEDS: ATORVASTATIN 40 MG TABLET PO SCH (20:29)
[2020-12-20 00:26] VITALS: BP 149/93
[2020-12-20] MEDS: ASPIRIN 81 MG TABLET EC PO SCH (05:05)
[2020-12-20] MEDS: HEPARIN 5,000 UNITS/ML, 1ML SQ SCH ×3 (05:05→20:38)
[2020-12-20] MEDS: CARVEDILOL 25 MG TABLET PO SCH ×2 (05:06→17:22)
[2020-12-20 07:26] VITALS: BP 92/60
[2020-12-20 09:14] LABS: ANION GAP 8 mmol/L (5-15); CALCIUM 8.3 mg/dL (8.5-10.1); CHLORIDE 114 mmol/L (98-107); CREATININE 4.09 mg/dL (0.7-1.3)
[2020-12-20] MEDS: POTASSIUM CHLORIDE 20 MEQ TAB.ER.PRT PO SCH ×2 (09:16→20:38)
[2020-12-20] MEDS: TIMOLOL OPHTH 0.25%, 5ML RIGHTEYE SCH ×2 (09:17→20:37)
[2020-12-20] MEDS: TAMSULOSIN 0.4 MG CAP.ER.24H PO SCH (09:17)
[2020-12-20] MEDS: FUROSEMIDE 40 MG TABLET PO SCH (09:17)
[2020-12-20 12:20] VITALS: BP 111/73
[2020-12-20 20:02] VITALS: BP 107/68
[2020-12-20] MEDS: ATORVASTATIN 40 MG TABLET PO SCH (20:38)
[2020-12-20] MEDS: INSULIN GLARGINE 100 UNITS/ML, PEN SQ-INSULIN SCH (20:42)
[2020-12-21 00:52] VITALS: BP 138/88
[2020-12-21 05:20] LABS: ANION GAP 7 mmol/L (5-15); CALCIUM 8.5 mg/dL (8.5-10.1); CHLORIDE 115 mmol/L (98-107); CREATININE 3.84 mg/dL (0.7-1.3)
[2020-12-21] MEDS: ASPIRIN 81 MG TABLET EC PO SCH (05:25)
[2020-12-21] MEDS: CARVEDILOL 25 MG TABLET PO SCH (05:26)
[2020-12-21] MEDS: HEPARIN 5,000 UNITS/ML, 1ML SQ SCH ×2 (05:26→13:17)
[2020-12-21 05:27] VITALS: BP 147/101
[2020-12-21 07:37] VITALS: BP 142/92
[2020-12-21] MEDS: FUROSEMIDE 40 MG TABLET PO SCH (09:08)
[2020-12-21] MEDS: TAMSULOSIN 0.4 MG CAP.ER.24H PO SCH (09:09)
[2020-12-21] MEDS: TIMOLOL OPHTH 0.25%, 5ML RIGHTEYE SCH (09:09)
[2020-12-21] MEDS: ACETAMINOPHEN 325 MG TABLET PO PRN (09:09)
[2020-12-21] MEDS: POTASSIUM CHLORIDE 20 MEQ TAB.ER.PRT PO SCH (09:09)
[2020-12-21] MEDS ORDERED: INSULIN LISPRO 100 UNITS/ML, PEN SQ-INSULIN SCH (11:00)
[2020-12-21] MEDS ORDERED: FURO40TA6 PO (11:52)
[2020-12-21] MEDS ORDERED: POTA20TA6 PO (11:52)
[2020-12-21] MEDS ORDERED: ATOR40TA78 PO (11:52)
[2020-12-21] MEDS ORDERED: Timolol Ophth 0.25%, 5ML RIGHTEYE (11:52)
[2020-12-21] MEDS ORDERED: TAMS-11 PO (11:52)
[2020-12-21] MEDS ORDERED: CARV25TA12 PO (11:52)
[2020-12-21 12:21] VITALS: BP 132/84
== END 2020-12-21 14:08 | disposition home or self-care (01) | DRG 682 ==
LOC: ED 07:26 → EDIP 07:35 → 4EST 09:34 → DCLOUNGE 12-21 13:50
PROVIDERS: ADMIT Internal Medicine Infectious Disease; ATTEND Family Medicine
DX: N17.0 Acute kidney failure with tubular necrosis (principal); I50.23 Acute on chronic systolic (congestive) heart failure; I13.0 Hypertensive heart and chronic kidney disease with heart failure and stage 1 through stage 4 chronic kidney disease, or unspecified chronic kidney disease; I16.9 Hypertensive crisis, unspecified; E11.22 Type 2 diabetes mellitus with diabetic chronic kidney disease; D64.9 Anemia, unspecified; E78.5 Hyperlipidemia, unspecified; E87.6 Hypokalemia; H40.50X0 Glaucoma secondary to other eye disorders, unspecified eye, stage unspecified; F15.10 Other stimulant abuse, uncomplicated; N18.9 Chronic kidney disease, unspecified; N40.0 Benign prostatic hyperplasia without lower urinary tract symptoms; Z79.4 Long term (current) use of insulin; Z79.82 Long term (current) use of aspirin; Z91.19 Patient's noncompliance with other medical treatment and regimen; Z83.3 Family history of diabetes mellitus; Z89.411 Acquired absence of right great toe
CPT/HCPCS: 36415; 71045; 76770; 78452; 80048; 80053; 80061; 80074; 80307; 81001; 82570; 82962; 83036; 83520; 83735; 83880; 84100; 84156; 84443; 84484; 85025; 85651; 86038; 86160; 86162; 86256; 87086; 93005; 93017; 93306; 93356; 99285; G0378; J1644; J1940; J2785; A9502; J0360; J1815

== ENCOUNTER 2021-06-19 09:11 | Inpatient (IN) | payer MEDICAID ==
[~2021-06-19] VITALS: Ht 175.3 cm; Wt 95.7 kg
[~2021-06-19 09:11] MED LIST changes: +ATOR40TA78 PO; +FURO40TA6 PO; +POTA20TA6 PO; +Timolol Ophth 0.25%, 5ML RIGHTEYE
--- NOTE | 2021-06-19 09:20 | NUR ---
SUPERVISOR FINISHING DEPARTMENT NOTE: EKG TAKEN IN TRIAGE BY EDT, REVIEWED BY EDMD
--- NOTE | 2021-06-19 09:47 | NUR ---
PT HAS CO CHEST PAIN LEFT MID CHEST. RADIATES TO BACK. STARTED THIS AM. SOB W ACTIVITIY. DENIES N/V. PT HAS HX OF CKD. NEW FISTULA REROUTE ON LEFT ARM W SURGICAL SCARE. PT HAS BILATE 3+ EDEMA OF THE LEGS. 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 NOT IN DISTRESS. CALL LIGHT IN REACH.
[2021-06-19] MEDS ORDERED: MORPHINE SULFATE 4 MG/ML, 1ML ONE (10:10)
[2021-06-19] MEDS ORDERED: ASPIRIN 81 MG TABLET CHEW ONE (10:10)
--- NOTE | 2021-06-19 10:13 | NUR ---
MEDICATED 324 ASA. REFUSED MORPHINE, SAYS PAIN IS TOLERABLE
[2021-06-19 10:26] LABS: BASOPHILS % (AUTO) 1 % (0-1); EOSINOPHILS % (AUTO) 11 % (1-7); LYMPHOCYTES % (AUTO) 15 % (22-44); MEAN CORPUSCULAR HEMOGLOBIN 29.1 pg (27.5-34.5); MEAN CORPUSCULAR HGB CONC 34.2 g/dL (33.2-36.2); MEAN PLATELET VOLUME 8.2 fL (7.4-10.4); MONOCYTES % (AUTO) 7 % (2-9); NEUTROPHILS % (AUTO) 67 % (42-75); PLATELET COUNT 258 x10^3/uL (130-400); RED BLOOD COUNT 3.24 x10^6/uL (4.38-5.82); RED CELL DISTRIBUTION WIDTH 15.7 % (9.4-14.8)
[2021-06-19] MEDS ORDERED: ASPIRIN 81 MG TABLET CHEW PO ONE (10:30)
[2021-06-19 10:34] LABS: ALBUMIN 2.2 g/dL (3.4-5.0); ANION GAP 7 mmol/L (5-15); CALCIUM 8.2 mg/dL (8.5-10.1); CHLORIDE 117 mmol/L (98-107)
[2021-06-19 10:44] LABS: ALANINE AMINOTRANSFERASE 18 U/L (12-78); ALKALINE PHOSPHATASE 107 U/L (45-117); BILIRUBIN,TOTAL 0.4 mg/dL (0.2-1.0); CREATININE 7.73 mg/dL (0.7-1.3); TOTAL PROTEIN 6.6 g/dL (6.4-8.2); TROPONIN I < 0.015 ng/mL (0.000-0.045)
--- NOTE | 2021-06-19 10:48 | NUR ---
PT TO CTA
[2021-06-19] MEDS ORDERED: OMNIPAQUE 350 MG/ML, 100ML BOTTLE ONE (10:55)
[2021-06-19] MEDS ORDERED: SODIUM CHLORIDE FLUSH 10ML SYR IVF ONE (11:00)
[2021-06-19] MEDS ORDERED: MORPHINE SULFATE 4 MG/ML, 1ML IVPush ONE (11:00)
[2021-06-19] MEDS ORDERED: hydrALAzine 20 MG/ML, 1ML ONE (11:28)
[2021-06-19] MEDS ORDERED: FUROSEMIDE 20 MG/2 ML ONE (11:28)
[2021-06-19] MEDS ORDERED: hydrALAzine 20 MG/ML, 1ML IV ONE ×2 (11:30→12:00)
[2021-06-19] MEDS ORDERED: FUROSEMIDE 20 MG/2 ML IV ONE (11:30)
--- NOTE | 2021-06-19 11:39 | NUR ---
MEDICATED PER ORDERS, WILL RECHECK BP
--- NOTE | 2021-06-19 11:59 | NUR ---
REPEAT HYDRALIZINE PER MD
[2021-06-19] MEDS ORDERED: AMLO-211 PO (12:29)
[2021-06-19 12:35] LABS: TROPONIN I 0.017 ng/mL (0.000-0.045)
--- NOTE | 2021-06-19 13:04 | NUR ---
REPORT TO AUSTYN. PT READY FOR TRANSFER
[2021-06-19 14:00] VITALS: BP 195/107
[2021-06-19] MEDS ORDERED: hydrALAzine 20 MG/ML, 1ML IVPush PRN (14:00)
[2021-06-19] MEDS ORDERED: morphine SULFATE 10 MG/ML, 1ML IVPush PRN (14:00)
[2021-06-19] MEDS ORDERED: ONDANSETRON ODT 4 MG PO PRN (14:00)
[2021-06-19] MEDS ORDERED: FUROSEMIDE 40 MG/4 ML IV ONE (14:21)
[2021-06-19 14:42] VITALS: BP 177/101
[2021-06-19] MEDS: LABETALOL 5MG/ML, 20ML IVPush PRN (14:42)
[2021-06-19] MEDS ORDERED: HEPARIN 5,000 UNITS/ML, 1ML SQ SCH (15:00)
[2021-06-19 16:07] LABS: AMPHETAMINE SCREEN, URINE Negative (Negative); BARBITURATE SCREEN, URINE Negative (Negative); BENZODIAZEPINE SCREEN, URINE Negative (Negative); CANNABINOID SCREEN, URINE Negative (Negative); COCAINE SCREEN, URINE Negative (Negative); METHADONE SCREEN, URINE Negative (Negative); OPIATE SCREEN, URINE Negative (Negative)
[2021-06-19 17:15] VITALS: BP 173/99
[2021-06-19] MEDS: CARVEDILOL 25 MG TABLET PO SCH (17:31)
[2021-06-19 20:03] LABS: TROPONIN I 0.016 ng/mL (0.000-0.045)
[2021-06-19 20:51] VITALS: BP 165/108
[2021-06-19] MEDS: ATORVASTATIN 40 MG TABLET PO SCH (21:05)
[2021-06-19] MEDS: POTASSIUM CHLORIDE 20 MEQ TAB.ER.PRT PO SCH (21:05)
[2021-06-19] MEDS: TIMOLOL OPHTH 0.25%, 5ML RIGHTEYE SCH (21:15)
[2021-06-19 22:09] LABS: TROPONIN I < 0.015 ng/mL (0.000-0.045)
[2021-06-20] VITALS (7 sets, daily range): BP systolic 131–187; BP diastolic 83–126
[2021-06-20] MEDS: LABETALOL 5MG/ML, 20ML IVPush PRN (03:17)
[2021-06-20 05:05] LABS: BASOPHILS % (AUTO) 1 % (0-1); EOSINOPHILS % (AUTO) 12 % (1-7); LYMPHOCYTES % (AUTO) 14 % (22-44); MEAN CORPUSCULAR HEMOGLOBIN 28.3 pg (27.5-34.5); MEAN CORPUSCULAR HGB CONC 33.2 g/dL (33.2-36.2); MONOCYTES % (AUTO) 8 % (2-9); NEUTROPHILS % (AUTO) 65 % (42-75); PLATELET COUNT 224 x10^3/uL (130-400); RED BLOOD COUNT 2.85 x10^6/uL (4.38-5.82); RED CELL DISTRIBUTION WIDTH 15.5 % (9.4-14.8)
[2021-06-20 05:23] LABS: CHLORIDE 115 mmol/L (98-107)
[2021-06-20 05:31] LABS: ANION GAP 9 mmol/L (5-15); CALCIUM 8.1 mg/dL (8.5-10.1); CHOL/HDL RATIO 4.1; CHOLESTEROL, TOTAL 167 mg/dL (140-239); CREATININE 7.89 mg/dL (0.7-1.3); HDL CHOL % 25 % (26-37); HDL CHOLESTEROL (DIRECT) 41 mg/dL (40-60); LDL CHOLESTEROL,CALCULATED 103 mg/dL (54-169); LDL/HDL RATIO 2.5 (0.5-3.0); TRIGLYCERIDES 113 mg/dL (50-200); VLDL CHOLESTEROL 23 mg/dL (0-25)
[2021-06-20] MEDS: CARVEDILOL 25 MG TABLET PO SCH ×2 (06:06→17:26)
[2021-06-20] MEDS ORDERED: MAGNESIUM SULFATE PMX 2GM/50ML 50 ML IV ONE (08:00)
[2021-06-20] MEDS ORDERED: LIDOCAINE 1%, 20ML ONE (08:26)
[2021-06-20] MEDS ORDERED: LIDOCAINE 1%, 10ML ONE (08:26)
[2021-06-20] MEDS: TAMSULOSIN 0.4 MG CAP.ER.24H PO SCH ×2 (08:33→09:49)
[2021-06-20] MEDS: AMLODIPINE 10 MG TAB PO SCH (08:33)
[2021-06-20] MEDS: TIMOLOL OPHTH 0.25%, 5ML RIGHTEYE SCH ×2 (08:35→19:28)
[2021-06-20] MEDS ORDERED: FLUMAZENIL 0.1 MG/1 ML, 5ML ONE (08:42)
[2021-06-20] MEDS ORDERED: NALOXONE 1 MG/ML, 2ML ONE (08:42)
[2021-06-20] MEDS ORDERED: MIDAZOLAM 1 MG/ML, 5ML ONE (08:42)
[2021-06-20] MEDS ORDERED: FENTANYL PF 100 MCG/2ML ONE ×2 (08:42)
[2021-06-20] MEDS ORDERED: CEFAZOLIN PMX 1GM/50ML 50 ML ONE (08:54)
[2021-06-20] MEDS: FUROSEMIDE 40 MG/4 ML IV SCH ×2 (09:49→17:26)
[2021-06-20] MEDS: POTASSIUM CHLORIDE 20 MEQ TAB.ER.PRT PO SCH ×2 (09:49→19:28)
[2021-06-20] MEDS: ACETAMINOPHEN 325 MG TABLET PO PRN (17:26)
[2021-06-20] MEDS: ATORVASTATIN 40 MG TABLET PO SCH (19:28)
[2021-06-21 02:25] VITALS: BP 151/94
[2021-06-21] MEDS: ACETAMINOPHEN 325 MG TABLET PO PRN (02:25)
[2021-06-21 05:22] LABS: BASOPHILS % (AUTO) 1 % (0-1); EOSINOPHILS % (AUTO) 11 % (1-7); LYMPHOCYTES % (AUTO) 16 % (22-44); MEAN CORPUSCULAR HEMOGLOBIN 28.8 pg (27.5-34.5); MEAN CORPUSCULAR HGB CONC 34.2 g/dL (33.2-36.2); MEAN PLATELET VOLUME 8.4 fL (7.4-10.4); MONOCYTES % (AUTO) 9 % (2-9); NEUTROPHILS % (AUTO) 64 % (42-75); PLATELET COUNT 182 x10^3/uL (130-400); RED BLOOD COUNT 2.63 x10^6/uL (4.38-5.82); RED CELL DISTRIBUTION WIDTH 15.1 % (9.4-14.8)
[2021-06-21 05:38] LABS: CHLORIDE 106 mmol/L (98-107)
[2021-06-21 05:45] LABS: % IRON SATURATION 19 % (20-55); ALANINE AMINOTRANSFERASE 15 U/L (12-78); ALBUMIN 1.6 g/dL (3.4-5.0); ALKALINE PHOSPHATASE 90 U/L (45-117); ANION GAP 7 mmol/L (5-15); BILIRUBIN,TOTAL 0.3 mg/dL (0.2-1.0); CALCIUM 7.5 mg/dL (8.5-10.1); CREATININE 6.43 mg/dL (0.7-1.3); IRON LEVEL 40 mcg/dL (65-175); TOTAL IRON BINDING CAPACITY 206 mcg/dL (250-450); TOTAL PROTEIN 5.3 g/dL (6.4-8.2)
[2021-06-21 06:01] VITALS: BP 156/100
[2021-06-21] MEDS: CARVEDILOL 25 MG TABLET PO SCH ×2 (06:02→22:07)
[2021-06-21] MEDS: FUROSEMIDE 40 MG/4 ML IV SCH ×2 (08:25→15:59)
[2021-06-21] MEDS: AMLODIPINE 10 MG TAB PO SCH (08:25)
[2021-06-21] MEDS: TAMSULOSIN 0.4 MG CAP.ER.24H PO SCH (08:25)
[2021-06-21] MEDS: POTASSIUM CHLORIDE 20 MEQ TAB.ER.PRT PO SCH ×2 (08:25→22:06)
[2021-06-21] MEDS: TIMOLOL OPHTH 0.25%, 5ML RIGHTEYE SCH ×2 (08:25→22:07)
[2021-06-21 08:28] VITALS: BP 149/93
[2021-06-21] MEDS: HYDROcodone/APAP 5/325 TABLET PO PRN ×2 (08:38→15:59)
[2021-06-21 14:10] VITALS: BP 135/80
[2021-06-21] MEDS: ONDANSETRON 2MG/ML, 2ML IVPush PRN (15:50)
[2021-06-21 22:00] VITALS: BP 148/80
[2021-06-21] MEDS: ATORVASTATIN 40 MG TABLET PO SCH (22:07)
[2021-06-22 03:09] VITALS: BP 134/80
[2021-06-22] MEDS: ONDANSETRON 2MG/ML, 2ML IVPush PRN (05:36)
[2021-06-22 05:39] VITALS: BP 186/106
[2021-06-22 06:17] LABS: BASOPHILS % (AUTO) 1 % (0-1); CHLORIDE 103 mmol/L (98-107); EOSINOPHILS % (AUTO) 9 % (1-7); LYMPHOCYTES % (AUTO) 15 % (22-44); MEAN CORPUSCULAR HEMOGLOBIN 28.5 pg (27.5-34.5); MEAN CORPUSCULAR HGB CONC 33.8 g/dL (33.2-36.2); MEAN PLATELET VOLUME 8.6 fL (7.4-10.4); MONOCYTES % (AUTO) 7 % (2-9); NEUTROPHILS % (AUTO) 68 % (42-75); PLATELET COUNT 197 x10^3/uL (130-400); RED BLOOD COUNT 2.82 x10^6/uL (4.38-5.82); RED CELL DISTRIBUTION WIDTH 15.4 % (9.4-14.8)
[2021-06-22 06:26] LABS: ALBUMIN 1.8 g/dL (3.4-5.0); ANION GAP 8 mmol/L (5-15); CALCIUM 8.1 mg/dL (8.5-10.1); CREATININE 4.84 mg/dL (0.7-1.3)
[2021-06-22] MEDS: AMLODIPINE 10 MG TAB PO SCH (08:37)
[2021-06-22] MEDS: POTASSIUM CHLORIDE 20 MEQ TAB.ER.PRT PO SCH ×2 (08:37→20:08)
[2021-06-22] MEDS: FUROSEMIDE 40 MG/4 ML IV SCH ×2 (08:37→17:20)
[2021-06-22] MEDS: TAMSULOSIN 0.4 MG CAP.ER.24H PO SCH (08:37)
[2021-06-22] MEDS: TIMOLOL OPHTH 0.25%, 5ML RIGHTEYE SCH ×2 (08:37→20:08)
[2021-06-22] MEDS: CARVEDILOL 25 MG TABLET PO SCH ×2 (08:40→17:20)
[2021-06-22] MEDS: HYDROcodone/APAP 5/325 TABLET PO PRN (08:41)
[2021-06-22 08:50] VITALS: BP 142/81
[2021-06-22 14:27] VITALS: BP 116/73
[2021-06-22 17:29] VITALS: BP 122/76
[2021-06-22] MEDS: ATORVASTATIN 40 MG TABLET PO SCH (20:08)
[2021-06-22 20:16] VITALS: BP 122/77
[2021-06-23 02:50] VITALS: BP 120/75
[2021-06-23] MEDS: CARVEDILOL 25 MG TABLET PO SCH ×2 (05:37→18:01)
[2021-06-23 06:33] LABS: ALBUMIN 1.8 g/dL (3.4-5.0); ANION GAP 7 mmol/L (5-15); CALCIUM 7.8 mg/dL (8.5-10.1); CHLORIDE 104 mmol/L (98-107); CREATININE 6.79 mg/dL (0.7-1.3)
[2021-06-23 09:09] VITALS: BP 106/68
[2021-06-23] MEDS: TAMSULOSIN 0.4 MG CAP.ER.24H PO SCH (09:13)
[2021-06-23] MEDS: AMLODIPINE 10 MG TAB PO SCH (09:13)
[2021-06-23] MEDS: POTASSIUM CHLORIDE 20 MEQ TAB.ER.PRT PO SCH ×2 (09:13→22:17)
[2021-06-23] MEDS: FUROSEMIDE 40 MG/4 ML IV SCH (09:13)
[2021-06-23] MEDS: TIMOLOL OPHTH 0.25%, 5ML RIGHTEYE SCH ×2 (09:14→22:23)
[2021-06-23] MEDS: FUROSEMIDE 80 MG TABLET PO SCH (14:25)
[2021-06-23 15:47] VITALS: BP 115/74
[2021-06-23 19:42] VITALS: BP 111/72
[2021-06-23] MEDS: ATORVASTATIN 40 MG TABLET PO SCH (22:14)
[2021-06-24 02:40] VITALS: BP 121/70
[2021-06-24 05:51] LABS: ALBUMIN 1.7 g/dL (3.4-5.0); ANION GAP 8 mmol/L (5-15); CALCIUM 7.6 mg/dL (8.5-10.1); CHLORIDE 105 mmol/L (98-107); CREATININE 7.97 mg/dL (0.7-1.3)
[2021-06-24] MEDS: CARVEDILOL 25 MG TABLET PO SCH ×2 (05:52→17:54)
[2021-06-24 05:53] VITALS: BP 139/87
[2021-06-24 08:32] VITALS: BP 128/81
[2021-06-24] MEDS: TAMSULOSIN 0.4 MG CAP.ER.24H PO SCH (08:35)
[2021-06-24] MEDS: FUROSEMIDE 80 MG TABLET PO SCH (08:35)
[2021-06-24] MEDS: AMLODIPINE 10 MG TAB PO SCH (08:35)
[2021-06-24] MEDS: TIMOLOL OPHTH 0.25%, 5ML RIGHTEYE SCH ×2 (08:37→20:18)
[2021-06-24] MEDS ORDERED: ERGOCALCIFEROL 50,000 UNIT CAPSULE PO SCH (12:00)
[2021-06-24 19:26] VITALS: BP 116/67
[2021-06-24] MEDS: ATORVASTATIN 40 MG TABLET PO SCH (20:18)
== END 2021-06-24 20:15 | disposition home or self-care (01) | DRG 673 ==
LOC: ED 09:45 → SUATTDRO 11:43 → 5SO 14:17 → 4NE 06-23 19:25
PROVIDERS: ADMIT Family Medicine; ATTEND Hospitalist
PROC: 0JH63XZ Insertion of Tunneled Vascular Access Device into Chest Subcutaneous Tissue and Fascia, Percutaneous Approach (ICD-10-PCS; principal; 2021-06-19)
PROC: 02HV33Z Insertion of Infusion Device into Superior Vena Cava, Percutaneous Approach (ICD-10-PCS; 2021-06-19)
PROC: B5181ZA Fluoroscopy of Superior Vena Cava using Low Osmolar Contrast, Guidance (ICD-10-PCS; 2021-06-19)
PROC: B548ZZA Ultrasonography of Superior Vena Cava, Guidance (ICD-10-PCS; 2021-06-19)
PROC: 5A1D70Z Performance of Urinary Filtration, Intermittent, Less than 6 Hours Per Day (ICD-10-PCS; 2021-06-20)
PROC: 5A1D70Z Performance of Urinary Filtration, Intermittent, Less than 6 Hours Per Day (ICD-10-PCS; 2021-06-21)
PROC: 5A1D70Z Performance of Urinary Filtration, Intermittent, Less than 6 Hours Per Day (ICD-10-PCS; 2021-06-24)
DX: N17.9 Acute kidney failure, unspecified (principal); I50.43 Acute on chronic combined systolic (congestive) and diastolic (congestive) heart failure; K85.90 Acute pancreatitis without necrosis or infection, unspecified; I13.2 Hypertensive heart and chronic kidney disease with heart failure and with stage 5 chronic kidney disease, or end stage renal disease; I16.1 Hypertensive emergency; E87.2 Acidosis; N18.6 End stage renal disease; E11.22 Type 2 diabetes mellitus with diabetic chronic kidney disease; E78.5 Hyperlipidemia, unspecified; N40.0 Benign prostatic hyperplasia without lower urinary tract symptoms; D63.1 Anemia in chronic kidney disease; E83.42 Hypomagnesemia; F15.11 Other stimulant abuse, in remission; H40.9 Unspecified glaucoma; H54.61 Unqualified visual loss, right eye, normal vision left eye; Z79.899 Other long term (current) drug therapy; Z88.8 Allergy status to other drugs, medicaments and biological substances; Z79.84 Long term (current) use of oral hypoglycemic drugs; Z89.411 Acquired absence of right great toe; Z83.3 Family history of diabetes mellitus; Z99.2 Dependence on renal dialysis
CPT/HCPCS: 36415; 96374; 96375; 99291; J3490; 36558; 71045; 71275; 74174; 76937; 80048; 80053; 80061; 80069; 80307; 82306; 82728; 83540; 83550; 83690; 83735; 83880; 83970; 84100; 84484; 84550; 85025; 86480; 86704; 86706; 87340; 90935; 93005; 93306; 99156; 99157; G0378; J0690; J1644; J1940; J2250; J2405; J3010; Q0162; Q9967; C1750; J0360; J1642; J2310; J3475